=== PATIENT | female | born 1965 | race Caucasian/White ===

== ENCOUNTER 2017-01-05 13:07 | Emergency (ER) | payer OTHER ==
[~2017-01-05] VITALS: Ht 165.1 cm; Wt 67.5 kg
[~2017-01-05 13:07] MED LIST: BUPR-79 PO; KETO0.5S33 OPR; PRED1SUS3 OPR; PRLSR20 PO
[2017-01-05 13:08] VITALS: TEMP 37; Ht 165.1 cm; Wt 67.5 kg
[2017-01-05] MEDS ORDERED: KETOROLAC TROMETHAMINE 60 MG/2 ML VIAL IM STA (13:30)
[2017-01-05] MEDS ORDERED: CYCL5TAB PO (13:35)
--- NOTE | 2017-01-05 13:39 | EMERGENCY ROOM VISIT NOTE ---
ED Visit Note First contact with patient: 13:15 CHIEF COMPLAINT: Shoulder pain HISTORY OF PRESENT ILLNESS: This 51-year-old female patient presents to the emergency department, ambulatory, complaining of pain in the neck right shoulder. The patient states the pain began approximately 1 week ago. She states it is been slowly progressing and worsening over the past week. The patient states today, the pain became so bad that she was almost brought to her knees. 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 The patient states this is no different than the past 3 years. The patient has been taking 600 mg Advil every 4-5 hours with only minimal relief. The patient states she is more comfortable with her arm in a flexed position, and the pain worsens when leaning backwards, landing her arm dangle, or moving her head. The patient rates the pain as achy and pulsating at rest, and like a hot knife going through her joint at its worst and rates the pain 4/10 at rest, and 9/10 at its worst. The patient does not have a history of previous neck problems. The patient does have pain radiating towards the right shoulder. She states the pain begins in her anterior shoulder, radiates toward the back of her head/neck , and down towards her scapula. The patient denies numbness and tingling. The patient denies chest pain or shortness of breath. There was no head or shoulder injury and no loss of consciousness. The patient denies headache, blurred vision, abdominal pain, nausea, or vomiting. The patient denies change in personality. REVIEW OF SYSTEMS: A 10 system review of systems was completed with positives and pertinent negatives listed in the HPI. ALLERGIES: Erythromycin MEDICATIONS: Zoloft, Zantac PMH: GERD, Depression SOCIAL HISTORY: The patient lives locally with family. She denies drug, alcohol , tobacco use. PHYSICAL EXAM: VITALS: Vitals are noted on the nurse's note and reviewed by myself. Vital signs stable. GENERAL: This is a 51-year-old female, in no acute distress, nondiaphoretic, well-developed well-nourished. SKIN: Capillary reflex less than 2 seconds. HEENT: Normocephalic. PERRLA. EOMI. Nares patent. Mucous membranes moist. Neck is supple without nuchal rigidity. Cervical spine is not tender to palpation. The patient does have tenderness of the paraspinal muscles on the right. There is no lymphadenopathy. MUSCULOSKELETAL: The patient has full range of motion of the bilateral arms, however range of motion of the right shoulder is mildly limited due to pain. Strength 5/5 of the bilateral upper extremities. The patient has tenderness with lateral flexion of the neck. Muscle spasms noted on palpation of the trapezius muscle on the right. NEURO: Patient was alert and oriented to person place and time. Normal sensation to light and sharp touch. No focal neurologic deficits. EMERGENCY DEPARTMENT COURSE: I examined the patient. Assessment the patient options including performing an x-ray of the shoulder. Based on my examination , I am noting muscle spasms, and suspect this is the cause of the patient's pain. The patient and her visitor at bedside decided against performing an x- ray. I did recommend prednisone and muscle relaxers for the muscle spasms. The patient declines prednisone, as it makes her angry. I encouraged her to use another form of NSAIDs, and did offer naproxen or something different. The patient states she was unable to tolerate naproxen and it made her sick. I discussed with the patient the importance of taking scheduled ibuprofen in lieu of other NSAIDs, and using muscle relaxers as needed. The patient is to use heat for relief of the discomfort. Discharge instructions were reviewed. The patient started home in good condition. DIFFERENTIAL DIAGNOSIS: Muscle spasms, fracture, contusion, sprain, strain, rotator cuff tear, malignancy, and others DIAGNOSIS: Muscle spasms, shoulder pain DISCHARGE INSTRUCTIONS & TREATMENT: ORTHOPEDIC INSTRUCTIONS: Ibuprofen(Motrin, Advil) may be used for fever or pain. Use 600mg every six hours as needed. Take this medication regularly for the next week. Take with food. Avoid using more than 2400mg in a 24 hour period. Do not use 2400mg per day for more than three consecutive days without physician direction. Prolonged inappropriate use can lead to stomach upset or ulcers. (AND/OR) Acetaminophen(Tylenol) may be used for fever or pain. Use 1000mg every six hours as needed. Avoid using more than 3000mg in a 24 hour period. You have been prescribed Flexeril (cyclobenzaprine) 1-2 tabs orally, three times per day. Do NOT exceed 30 mg (6 tabs) per day. Take your first dose at bedtime as it can make you drowsy. Always take all medications as prescribed. Ice compresses for 20 minutes at a time four times daily for 2-3 days. Use the sling as instructed. Remove your arm from the sling 4-6 times a day and move all the joints around to keep them loose. Rest and elevate your injury. Return to the ER immediately for any numbness, tingling, severe pain, extreme swelling in the extremity or as needed. Call [facility], [phone], if no improvement in 1-2 weeks to arrange follow up for your injury. Follow-up with your primary care physician in 2 to 3 days for a recheck of your current condition. Current/Historical Medications Scheduled Bupropion (Wellbutrin Sr), 150 MG PO QAM Ketorolac Tromethamine (Ophth) (Acular Oph), 1 DROPS OPR DAILY Prednisolone Acetate (Ophth) (Pred Forte 1% Oph), 1 DROPS OPR TID Scheduled PRN Cyclobenzaprine Hcl (Flexeril), 1-2 TAB PO TID PRN for Muscle Spasms Omeprazole (Prilosec), 20 MG PO DAILY PRN for Indigestion Allergies Coded Allergies: Erythromycin (Unverified Allergy, Mild, N/V, 04/08/16) Vital Signs Date Time Temp Pulse Resp B/P (MAP) Pulse Ox O2 Delivery O2 Flow Rate FiO2 01/05/17 13:40 64 18 150/78 96 Room Air 01/05/17 13:08 37.0 93 16 165/106 95 Room Air Medications Administered Medications (Trade) Dose Ordered Sig/Jyoti Route Start Time Stop Time Status Last Admin Dose Admin Ketorolac Tromethamine (Toradol Inj) 60 mg NOW STAT IM 01/05/17 13:30 01/05/17 13:31 DC 01/05/17 13:37 60 MG Departure Information Impression Primary Impression: Muscle spasms of neck Additional Impression: Right shoulder strain Dispostion Home / Self-Care Condition GOOD Prescriptions Cyclobenzaprine Hcl (FLEXERIL) 5 Mg Tab 1-2 TAB PO TID Y for Muscle Spasms, #15 TAB PRN Prov: Yolette Vargas PA-C 01/05/17 Referrals Clarice Tejada D.O. (PCP) Patient Instructions ED Spasm Muscle, My [facility] Additional Instructions ORTHOPEDIC INSTRUCTIONS: Ibuprofen(Motrin, Advil) may be used for fever or pain. Use 600mg every six hours as needed. Take this medication regularly for the next week. Take with food. Avoid using more than 2400mg in a 24 hour period. Do not use 2400mg per day for more than three consecutive days without physician direction. Prolonged inappropriate use can lead to stomach upset or ulcers. (AND/OR) Acetaminophen(Tylenol) may be used for fever or pain. Use 1000mg every six hours as needed. Avoid using more than 3000mg in a 24 hour period. You have been prescribed Flexeril (cyclobenzaprine) 1-2 tabs orally, three times per day. Do NOT exceed 30 mg (6 tabs) per day. Take your first dose at bedtime as it can make you drowsy. Always take all medications as prescribed. Ice compresses for 20 minutes at a time four times daily for 2-3 days. Use the sling as instructed. Remove your arm from the sling 4-6 times a day and move all the joints around to keep them loose. Rest and elevate your injury. Return to the ER immediately for any numbness, tingling, severe pain, extreme swelling in the extremity or as needed. Call [facility], [phone], if no improvement in 1-2 weeks to arrange follow up for your injury. Follow-up with your primary care physician in 2 to 3 days for a recheck of your current condition. Problem Qualifiers Additional Impression: Right shoulder strain Encounter type: initial encounter Qualified Codes: S46.911A - Strain of unspecified muscle, fascia and tendon at shoulder and upper arm level, right arm , initial encounter
[2017-01-05 13:40] VITALS: BP 150/78; PULSE 64; O2SAT 96
[2017-01-05] MEDS ORDERED: IBUP-1050 PO (13:42)
[2017-01-05] MEDS ORDERED: SERT50TA PO (13:42)
[2017-01-05] MEDS ORDERED: RANI150T3 PO (13:42)
== END 2017-01-05 13:49 | disposition home or self-care (01) ==
LOC: C.EDB 13:08 → C.EDD 13:49
DX: M62.838 Other muscle spasm (principal); S46.911A Strain of unspecified muscle, fascia and tendon at shoulder and upper arm level, right arm, initial encounter; X58.XXXA Exposure to other specified factors, initial encounter; K21.9 Gastro-esophageal reflux disease without esophagitis; F32.9 Major depressive disorder, single episode, unspecified

== ENCOUNTER 2025-04-08 21:45 | Observation (INO) ==
--- NOTE | 2025-04-08 22:11 | Emergency Department Note ---
Impression & Plan Abdominal pain, Mass of cecum ED Provider Note ED Provider Note NAME: JLUIS PRADO AGE:59 SEX: Female : 1965 ARRIVES VIA: Private vehicle INFORMANT: Patient ED PROVIDER(s): Rose Baires DO CHIEF COMPLAINT: Abdominal pain HPI: This is a 59-year-old female who presents to the emergency department due to concern for central lower abdominal pain which began this afternoon around 3 PM. Patient states she was at work at the moment and felt well earlier in the day. No recent changes in diet or medications. Patient states she does have a history of peptic ulcer disease but takes pantoprazole daily. She states pain has been constant, and seem to radiate from her central lower abdomen into her left lower quadrant and then began to move superiorly along the left flank. She states no pain into her back. No recent change in urine or urinary habits. Patient states she did have more bowel movements today than normal however denies any melena, hematochezia, or overt diarrhea. No recent travel or other known sick contacts. Patient has never had endoscopy or colonoscopy. No prior abdominal surgeries. PAST MEDICAL HISTORY:See Below PAST SURGICAL HISTORY:See Below FAMILY HISTORY:See Below SOCIAL HISTORY:See Below HOME MEDICATIONS:See Below ALLERGIES:See Below VITALS:See Below PHYSICAL EXAMINATION: GENERAL: alert, uncomfortable appearing, well nourished, no distress, non-toxic EYE EXAM: normal conjunctiva, PERRL and EOM's grossly intact OROPHARYNX: no exudate, no erythema, lips, buccal mucosa, and tongue normal and mucous membranes are moist NECK: supple, no nuchal rigidity, no adenopathy, non-tender LUNGS: Clear to auscultation. Normal chest wall mechanics, no w/r/r HEART: no murmurs, S1 normal and S2 normal ABDOMEN: abdomen soft, pain with palpation of the central lower abdomen, normo- active bowel sounds, no masses, no rebound or guarding. Dull to percussion. SKIN: no rashes, petechiae, orbruising UPPER EXTREMITIES: upper extremities are grossly normal. FROM, nml pulses b/l. LOWER EXTREMITIES: No pitting edema. FROM, nml pulses b/l. NEURO EXAM: Normal sensorium, cranial nerves II-XII grossly intact, normal speech, no facial droop,nogross weakness of arms, no gross weakness of legs. Gross sensation intact. No ataxia. Vital Signs: reviewed and remarkable Differential Diagnosis: Colitis, diverticulitis, UTI, ureterolithiasis, bowel obstruction, viral syndrome, pyelonephritis, perforation, GI bleed, mesenteric ischemia, as well as others were considered MEDICAL DECISION MAKING: This is a 59-year-old female who presents to the emergency department due to concern for abrupt onset central and left-sided abdominal pain today. Patient afebrile and hemodynamically stable on arrival. Labs drawn and sent, IV established, EKG performed at bedside and interpreted by me and she was monitored on telemetry. She was started on IV fluids and given IV Tylenol and IV morphine for pain. She was sent for CT of the abdomen pelvis. Labs reassuring. CT revealed a mass in the area of the cecum as well as a dilated appendix. No other acute inflammatory changes noted at the appendix. Patient did have improvement of her pain with morphine however did require subsequent doses. Urine collected and sent for analysis additionally. Case discussed with general surgery on-call who recommended admission for GI consult and likely colonoscopy prior to any surgical intervention. Patient was made aware of all results at bedside and given a copy of her CT report. She verbalized understanding of need for further inpatient evaluation and treatment. Case discussed with the hospitalist team additionally. Consultation(s): 0235: Discussed with Med Santana PA-C with gen surg. 0255: Discussed with Dr. Giang, [place] hospitalist team, for additional evaluation and mgmt. ER Treatment Provided: See below Diagnostics Interpreted By Me: -ECG: Normal sinus at 66, normal axis, normal intervals, no acute ST/T wave changes -Cardiac Monitoring: An order was placed for continuous cardiac monitoring. The monitor shows a rate of 60 with normal sinus rhythm. -Laboratory studies: As stated above and show below. -Imaging studies: ct a/p - no perf, no sbo Triage Nursing Note Reviewed Prior/Outside Records Reviewed Past Med/Surg History Problem List (Updated 04/09/25 @ 03:38 by Rose Baires DO) Mass of cecum (Acute) Cecum mass Abdominal pain (Acute) Atherogenic dyslipidemia Abdominal bruit Screening for hypercholesterolemia Exertional dyspnea Sleep disturbances Obstructive sleep apnea syndrome RLS (restless legs syndrome) Hot flashes Routine gynecological examination GERD (gastroesophageal reflux disease) (Chronic) Anxiety (Chronic) Hypertension (Chronic) Depression (Chronic) Medical History Electronic cigarette use Pericardial effusion JUST HAS MORE FLUID AROUND HEART THAN MOST PEOPLE PER PATIENT> REASON FOR LISINOPRIL> DR. MANUEL FOLLOWS > DX 2 YRS AGO Surgical History Hx of bilateral cataract extraction H/O tooth extraction Family History Mother Congestive heart failure Lung cancer Father Congestive heart failure Diabetes Denies family history of Ovarian cancer Prostate cancer Myocardial infarction Breast cancer Colorectal cancer Social History Smoking Status: Current every day smoker Tobacco Type: E-cigarettes / Vaping Age Started Using Tobacco: 14; Age Quit Using Tobacco: 47; packs per day: 1; Cigarettes Per Day: Njoy 1.5 pods a week; Second Hand Exposure: No; Do You Dip or Chew Tobacco: No; Hx Alcohol Use: Yes Alcohol type: beer Alcohol Intake Frequency: 2-4 x/Month Hx Substance Use: No Preferred Language: Lithuanian Communication Ability: Effective Visual Impairment: No Limitations Hearing Ability: Normal Trestle Builder Required: No Beliefs That Will Affect Care: None marital status: / Current Living Situation: Family Current Living Situation Comment: lives with daughter and grandchildren current occupational status: employed 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 How many Children do You have: 2 Feels Safe at Home: Yes Childhood Exposure to Second-Hand Smoke: No Diet: regular caffeine: Yes Dental Care, Regularly: Yes Physical Activity Frequency: Daily Seatbelt Use: always Sunscreen Use: No Assistive Devices: Denture - Upper and Denture - Lower Allergies Allergies Allergy/AdvReac Type Severity Reaction Status Date / Time strawberry Allergy Intermediate Hives Unverified 03/31/25 09:37 erythromycin base AdvReac Mild N/V Verified 03/31/25 09:37 Home Meds Previous Rx's Medication Instructions Recorded pantoprazole 40 mg tablet,delayed 40 mg PO DAILY #30 tabs 03/29/24 release (Protonix) atorvastatin 10 mg tablet 10 mg PO QPM #90 tabs 07/16/24 aspirin 81 mg tablet,delayed 81 mg PO DAILY #90 tabs 08/04/24 release citalopram 10 mg tablet 10 mg PO PM #90 tabs 10/26/24 lisinopril 30 mg tablet 30 mg PO QAM #90 tabs 03/31/25 Results & Data (ED) Vital Signs Vital Signs - 24 hr 04/08/25 21:47 04/08/25 22:07 04/08/25 22:33 Temperature 36.7 C Temperature Source Temporal Artery Scan Pulse Rate 86 69 Pulse Rate [Finger] 88 Pulse Rhythm Regular Pulse Strength Normal Respiratory Rate 17 18 Respiratory Effort / Characteristics Non-Labored Spontaneous Respiratory Depth Normal Respiratory Pattern Regular Blood Pressure 166/102 H Blood Pressure [Right Arm] 168/83 H Blood Pressure Mean 123 Blood Pressure Mean [Right Arm] 111 Blood Pressure Position Sitting Pulse Oximetry 97 96 Oxygen Delivery Method Room Air Room Air Sepsis Recent Fever Within 48 Hours No Sepsis New/Unexplained Change in Mental Status N/A Sepsis Action Taken by Nursing No Action Required 04/08/25 23:40 04/09/25 01:00 04/09/25 02:06 Temperature Temperature Source Pulse Rate 65 Pulse Rate [Finger] 67 63 Pulse Rhythm Pulse Strength Respiratory Rate 18 18 Respiratory Effort / Characteristics Non-Labored Spontaneous Non-Labored Spontaneous Respiratory Depth Normal Normal Respiratory Pattern Regular Regular Blood Pressure Blood Pressure [Right Arm] 138/79 145/79 H Blood Pressure Mean Blood Pressure Mean [Right Arm] 98 101 Blood Pressure Position Pulse Oximetry 94 96 Oxygen Delivery Method Room Air Room Air Sepsis Recent Fever Within 48 Hours Sepsis New/Unexplained Change in Mental Status Sepsis Action Taken by Nursing 04/09/25 03:00 04/09/25 04:00 Temperature Temperature Source Pulse Rate Pulse Rate [Finger] 57 L 66 Pulse Rhythm Pulse Strength Respiratory Rate 16 18 Respiratory Effort / Characteristics Non-Labored Spontaneous Non-Labored Spontaneous Respiratory Depth Normal Normal Respiratory Pattern Regular Regular Blood Pressure Blood Pressure [Right Arm] 144/81 H 150/76 H Blood Pressure Mean Blood Pressure Mean [Right Arm] 102 100 Blood Pressure Position Pulse Oximetry 94 95 Oxygen Delivery Method Room Air Room Air Sepsis Recent Fever Within 48 Hours Sepsis New/Unexplained Change in Mental Status Sepsis Action Taken by Nursing Laboratory Data 04/08/25 22:02 04/08/25 22:02 Lab Results 04/08/25 04/08/25 Range/Units 21:55 22:02 WBC 10.32 (4.8-10.8) K/ul RBC 4.61 (4.20-5.40) M/uL Hgb 13.5 (12.0-16.0) g/dL Hct 39.4 (37.0-47.0) % MCV 85.5 (80.0-100.0) fL MCH 29.3 (25.0-34.0) pg MCHC 34.3 (32.0-36.0) g/dL RDW Std Deviation 38.6 (36.4-46.3) fL RDW Coeff of Teja 12.5 (11.5-14.5) % Plt Count 278 (130-400) K/uL MPV 9.3 L (9.4-12.4) fL Immature Gran % (Auto) 0.4 % Neut % (Auto) 78.3 % Lymph % (Auto) 11.7 % [place] % (Auto) 7.6 % Eos % (Auto) 1.6 % Baso % (Auto) 0.4 % Neut # (Auto) 8.09 H (1.40-6.50) K/uL Lymph # (Auto) 1.21 (1.20-3.40) K/uL [place] # (Auto) 0.78 H (0.11-0.59) K/uL Eos # (Auto) 0.16 (0.00-0.50) K/uL Baso # (Auto) 0.04 (0.00-0.20) K/uL Immature Gran # (Auto) 0.04 (0.01-0.20) K/uL PT 10.5 (9.0-12.0) Seconds INR 1.0 (0.9-1.1) Sodium 137 (136-145) mmol/L Potassium 4.1 (3.5-5.1) mmol/L Chloride 104 (98-107) mmol/L Carbon Dioxide 25 (21-32) mmol/L Anion Gap 8 (3-11) BUN 19 (6-23) mg/dl Creatinine 0.78 (0.6-1.2) mg/dl Est Cr Clr Drug Dosing 79.9 ml/min eGFR 86.90 BUN/Creatinine Ratio 24.4 H (10-20) Glucose 119 H (70-99(Fasting)) mg/dl Calcium 9.7 (8.6-10.3) mg/dl Total Bilirubin 0.4 (0.2-1.0) mg/dl AST 15 (13-39) U/L ALT 20 (7-52) U/L Alkaline Phosphatase 95 (34-104) U/L Total Protein 7.4 (6.0-8.3) gm/dl Albumin 4.2 (3.4-5.0) gm/dl Globulin 3.2 (2.5-4.0) gm/dl Albumin/Globulin Ratio 1.3 (0.9-2) Lipase 5 L (11-82) U/L Urine Color Yellow Urine Appearance Clear (Clear) Urine pH 5.5 (4.5-7.5) Ur Specific [place] 1.017 (1.000-1.030) Urine Protein Negative (Negative) Urine Glucose (UA) Negative (Negative) Urine Ketones Negative (Negative) Urine Blood 2+ H (Negative) Urine Nitrite Negative (Negative) Urine Bilirubin Negative (Negative) Urine Urobilinogen Negative (Negative) Ur Leukocyte Esterase Negative (Negative) Urine WBC (Auto) 0-5 (0-5) /hpf Urine RBC (Auto) 0-2 (0-2) /hpf U Hyaline Cast (Auto) 0-2 (0-2) /lpf U Epithel Cells (Auto) 3-5 H (0-2) /hpf Urine Bacteria (Auto) None Seen (None Seen) Urine Comment Administered Medications Hydromorphone HCl (Hydromorphone Inj 0.5 Mg/0.5 Ml Syr) 0.25 mg IV Q3H PRN PRN Reason: Moderate Pain (Scale 4, 5, 6) Stop: 04/23/25 03:39 Last Admin: 04/09/25 04:01 Dose: 0.25 mg Documented By: AURE Piperacillin Sod/Tazobactam Sod (Zosyn) 4.5 gm in 100 mls @ 25 mls/hr IV NOW ONE; Protocol Stop: 04/09/25 07:59 Last Admin: 04/09/25 04:01 Dose: 25 mls/hr Documented By: AURE Discontinued Medications Sodium Chloride (Nss) 1,000 mls @ 999 mls/hr IV .Q1H1M STA Stop: 04/08/25 23:08 Last Infusion: 04/08/25 23:38 Dose: Infused Documented By: Admin: 04/08/25 22:23 Dose: 999 mls/hr Documented By: JOY Acetaminophen (Ofirmev) 1,000 mg in 100 mls @ 400 mls/hr IV NOW STA Stop: 04/08/25 22:22 Last Infusion: 04/08/25 22:48 Dose: Infused Documented By: Admin: 04/08/25 22:24 Dose: 400 mls/hr Documented By: JOY Famotidine (Pepcid 20mg Iv Push) 20 mg in 5 mls @ 2.5 mls/min IV NOW STA Stop: 04/08/25 22:09 Last Admin: 04/08/25 22:24 Dose: 2.5 mls/min Documented By: JOY Pantoprazole Sodium (Protonix) 40 mg in 10 mls @ 5 mls/min IV NOW ONE Stop: 04/08/25 22:09 Last Admin: 04/08/25 22:25 Dose: 5 mls/min Documented By: JOY Ioversol (Optiray 320 100ml) 92 ml IV ONCE ONE Stop: 04/08/25 22:52 Last Admin: 04/08/25 22:52 Dose: 92 ml Documented By: HERMILA Morphine Sulfate (Morphine Sulfate 4 Mg/Ml 1 Ml Carp\Vial) 4 mg IV NOW STA Stop: 04/08/25 22:09 Last Admin: 04/08/25 22:25 Dose: 4 mg Documented By: JOY Morphine Sulfate (Morphine Sulfate 4 Mg/Ml 1 Ml Carp\Vial) 4 mg IV NOW STA Stop: 04/09/25 01:08 Last Admin: 04/09/25 01:10 Dose: 4 mg Documented By: VÍCTOR Ondansetron HCl (Ondansetron Inj 2 Mg/Ml 2 Ml Vial) 4 mg IV NOW STA Stop: 04/08/25 22:09 Last Admin: 04/08/25 22:23 Dose: 4 mg Documented By: JOY Imaging Data Radiologist's Impression: Abdomen/Pelvis CT 04/08/25 22:33 Exam(s): CT ABDOMEN + PELVIS With Contrast IV Amt: 92 cc opti 320 EXAM: CT Abdomen and Pelvis With Intravenous Contrast CLINICAL HISTORY: Left lower quadrant Pain. TECHNIQUE: Axial computed tomography images of the abdomen and pelvis with intravenous contrast. CTDI is 22.02 mGy and DLP is 1037.75 mGy-cm. Automated exposure control was utilized for the study. A dose lowering technique was utilized adhering to the principles of ALARA. CONTRAST: Patient received 92 cc opti 320 of IV contrast COMPARISON: No relevant prior studies available. FINDINGS: Lung bases: Unremarkable. No mass. No consolidation. Pleural space: Trace bilateral pleural effusions. ABDOMEN: Liver: Unremarkable. No mass. Gallbladder and bile ducts: Unremarkable. No calcified stones. No ductal dilation. Pancreas: Unremarkable. No mass. No ductal dilation. Spleen: Unremarkable. No splenomegaly. Adrenals: Unremarkable. No mass. Kidneys and ureters: Unremarkable. No solid mass. No hydronephrosis. Stomach and bowel: Unremarkable. No obstruction. No mucosal thickening. PELVIS: Appendix: There is a 5.2 cm mass of the cecum with a distended fluid- filled appendix measuring 1.2 cm. Bladder: Unremarkable. No mass. Reproductive: The uterus and adnexa are within normal limits. ABDOMEN and PELVIS: Intraperitoneal space: Trace free fluid in the abdomen and pelvis is nonspecific. No free air. Bones/joints: No acute fracture. No dislocation. Soft tissues: A small fat containing umbilical hernia is present. Vasculature: Moderate atherosclerosis. No aneurysm. Lymph nodes: Unremarkable. No enlarged lymph nodes. IMPRESSION: 1. There is a 5.2 cm mass of the cecum with a distended fluid-filled appendix measuring 1.2 cm. This is highly concerning for malignancy. 2. Trace free fluid in the abdomen and pelvis is nonspecific. 3. Trace bilateral pleural effusions. Electronically signed by: Zoya Mendoza MD 04/09/25 02:15 AM Discharge Plan Visit Data Chief Complaint: Abdominal Pain Stated Complaint: ABD PAIN, NAUSEA ED Provider: Rose Baires Discharge Problem: Abdominal pain, Mass of cecum Patient Disposition: Admitted As Inpatient Condition: Fair Prescriptions Prescriptions: No Action atorvastatin 10 mg tablet 10 mg PO QPM Qty: 90 3RF aspirin 81 mg tablet,delayed release (DR/EC) 81 mg PO DAILY Qty: 90 3RF citalopram 10 mg tablet 10 mg PO PM Qty: 90 3RF lisinopril 30 mg tablet 30 mg PO QAM Qty: 90 3RF pantoprazole [Protonix] 40 mg tablet,delayed release (DR/EC) 40 mg PO DAILY Qty: 30 2RF Referrals Referrals: Chacorta Manuel DO [Primary Care Provider] -
[2025-04-08 22:20] LABS: Hematocrit (blood only) 39.4 % (37.0-47.0); Hemoglobin 13.5 g/dL (12.0-16.0); Immature Granulocytes # (auto) 0.04 K/uL (0.01-0.20); Immature Granulocytes % (auto) 0.4 %; Mean Corpuscular Hemoglobin 29.3 pg (25.0-34.0); Mean Corpuscular Volume 85.5 fL (80.0-100.0); Platelet Count 278 K/uL (130-400); RDW Standard Deviation 38.6 fL (36.4-46.3); Red Blood Count 4.61 M/uL (4.20-5.40); White Blood Count 10.32 K/ul (4.8-10.8)
[2025-04-08] MEDS: SODIUM CHLORIDE 0.9% 1,000 ML IV STA (22:23)
[2025-04-08] MEDS: ONDANSETRON INJ 2 MG/ML 2 ML VIAL IV STA (22:23)
[2025-04-08] MEDS: ACETAMINOPHEN 1,000 MG/100 ML VIAL IV STA (22:24)
[2025-04-08] MEDS: FAMOTIDINE 20MG IV PUSH 20 MG/5 ML SYR IV STA (22:24)
[2025-04-08] MEDS: MoRPHine SULFATE 4 MG/ML 1 ML CARP\\VIAL IV STA (22:25)
[2025-04-08] MEDS: PANTOprazole 40 MG/10 ML SYR IV ONE (22:25)
[2025-04-08 22:37] LABS: Alanine Aminotransferase 20.0 U/L (7-52); Albumin Globulin Ratio 1.3 (0.9-2); Albumin Level 4.2 gm/dl (3.4-5.0); Alkaline Phosphatase 95.0 U/L (34-104); Anion Gap 8.0 (3-11); Bilirubin,Total 0.4 mg/dl (0.2-1.0); Blood Urea Nitrogen 19.0 mg/dl (6-23); Calcium 9.7 mg/dl (8.6-10.3); Carbon Dioxide 25.0 mmol/L (21-32); Chloride 104.0 mmol/L (98-107); Creatinine Clr Calc Pharmacy 79.9 ml/min; Globulin 3.2 gm/dl (2.5-4.0); Glucose 119.0 mg/dl (70-99(Fasting)); Lipase 5.0 U/L (11-82); Potassium 4.1 mmol/L (3.5-5.1); Sodium 137.0 mmol/L (136-145); Total Protein 7.4 gm/dl (6.0-8.3)
[2025-04-08 22:42] LABS: Appearance Urine Clear (Clear); Bacteria Urine Automated None Seen (None Seen); Cast Urine Automated 0-2 /lpf (0-2); Glucose Urine UA Negative (Negative); RBC Urine Automated 0-2 /hpf (0-2); WBC Urine Automated 0-5 /hpf (0-5)
[2025-04-08 22:48] LABS: INR 1.0 (0.9-1.1); Prothrombin Time 10.5 Seconds (9.0-12.0)
[2025-04-08] MEDS: OPTIRAY 320 100ml IV ONE (22:52)
[2025-04-09] MEDS: MoRPHine SULFATE 4 MG/ML 1 ML CARP\\VIAL IV STA (01:10)
--- NOTE | 2025-04-09 02:16 | CT Scan Report ---
Exam(s): CT ABDOMEN + PELVIS With Contrast IV Amt: 92 cc opti 320 EXAM: CT Abdomen and Pelvis With Intravenous Contrast CLINICAL HISTORY: Left lower quadrant Pain. TECHNIQUE: Axial computed tomography images of the abdomen and pelvis with intravenous contrast. CTDI is 22.02 mGy and DLP is 1037.75 mGy-cm. Automated exposure control was utilized for the study. A dose lowering technique was utilized adhering to the principles of ALARA. CONTRAST: Patient received 92 cc opti 320 of IV contrast COMPARISON: No relevant prior studies available. FINDINGS: Lung bases: Unremarkable. No mass. No consolidation. Pleural space: Trace bilateral pleural effusions. ABDOMEN: Liver: Unremarkable. No mass. Gallbladder and bile ducts: Unremarkable. No calcified stones. No ductal dilation. Pancreas: Unremarkable. No mass. No ductal dilation. Spleen: Unremarkable. No splenomegaly. Adrenals: Unremarkable. No mass. Kidneys and ureters: Unremarkable. No solid mass. No hydronephrosis. Stomach and bowel: Unremarkable. No obstruction. No mucosal thickening. PELVIS: Appendix: There is a 5.2 cm mass of the cecum with a distended fluid- filled appendix measuring 1.2 cm. Bladder: Unremarkable. No mass. Reproductive: The uterus and adnexa are within normal limits. ABDOMEN and PELVIS: Intraperitoneal space: Trace free fluid in the abdomen and pelvis is nonspecific. No free air. Bones/joints: No acute fracture. No dislocation. Soft tissues: A small fat containing umbilical hernia is present. Vasculature: Moderate atherosclerosis. No aneurysm. Lymph nodes: Unremarkable. No enlarged lymph nodes. IMPRESSION: 1. There is a 5.2 cm mass of the cecum with a distended fluid-filled appendix measuring 1.2 cm. This is highly concerning for malignancy. 2. Trace free fluid in the abdomen and pelvis is nonspecific. 3. Trace bilateral pleural effusions. Electronically signed by: Zoya Mendoza MD 04/09/25 02:15 AM
--- NOTE | 2025-04-09 03:05 | Surgery Consultation ---
Date of Consultation April 09, 2025 Assessment & Plan (1) Cecum mass: I discussed with the treating retroposition the patient is going to be admitted on the hospitalist service. From a surgical perspective we recommend the following: Provide analgesics Provide antiemetics Keep patient n.p.o. for the present time Hydrate with IV fluids Initiate antibiotics As noted on patient's CT scan she appears to have a cecal mass which is concerning for malignancy. As the patient has never had a colonoscopy would be preferable to have her undergo this procedure so her entire colon can be examined and the cecal mass can be potentially biopsied which will help guide further therapythis will help determine if patient will require immediate surgical resection based on pathology results Is to be preferable to have the patient have a colonoscopy would recommend obtaining a GI consultation We will await input from gastroenterology with further recommendations to follow based on her clinical course as it unfolds as well as recommendations from gastroenterology Supervising Physician Co-Signing Physician Notes This case was discussed with the surgical PA. I have seen and examined this patient this am. She still has some mild abdominal pain and this is controlled with pain medication No acute surgical intervention Continue with IV abx GI on board and has initiated a diet with plans for bowel prep with expected c olonoscopy on Friday Surgery will follow History of Present Illness Reason for Consultation: Cecal mass History of Present Illness This is a 59-year-old female who presented to the emergency department secondary to lower abdominal pain that began the morning of 04/08/2025. She notes that the pain seemed to be more in the left lower quadrant when initially began but is now localized to the right lower quadrant. She has had nausea without vomiting but denies any fevers, shakes, or chills. She does not report any mitigating or modifying factors of her pain. She has never had abdominal surgery in the past. She has never had a colonoscopy. Since arrival to hospital patient has had labs and imaging which) reviewed. A CT scan of the abdomen pelvis showed the patient had concern for a 5.2 cm mass involving the cecum as well as a distended and fluid-filled appendix measuring 1.2 cmthe interpreting radiologist felt that this was concerning for malignancy. CBC revealed white blood cell count, hemoglobin, hematocrit, and platelet count were normal. Coagulation studies were normal. Chemistry profile showed sodium and potassium as well as the BUN and creatinine were normal. There is no elevation of LFTs or lipase and urinalysis was not indicative of infection. At the time of my interview she was resting comfortably in bed and she was in no distress Allergies Allergy/AdvReac Type Severity Reaction Status Date / Time strawberry Allergy Intermediate Hives Unverified 03/31/25 09:37 erythromycin base AdvReac Mild N/V Verified 03/31/25 09:37 Home Medications Medication Instructions Recorded Confirmed Type pantoprazole 40 mg tablet,delayed 40 mg PO DAILY #30 tabs 03/29/24 04/09/25 Rx release (Protonix) atorvastatin 10 mg tablet 10 mg PO QPM #90 tabs 07/16/24 04/09/25 Rx aspirin 81 mg tablet,delayed 81 mg PO DAILY #90 tabs 08/04/24 04/09/25 Rx release citalopram 10 mg tablet 10 mg PO PM #90 tabs 10/26/24 04/09/25 Rx lisinopril 30 mg tablet 30 mg PO QAM #90 tabs 03/31/25 04/09/25 Rx Patient History Medical History Electronic cigarette use Pericardial effusion JUST HAS MORE FLUID AROUND HEART THAN MOST PEOPLE PER PATIENT> REASON FOR LISINOPRIL> DR. MANUEL FOLLOWS > DX 2 YRS AGO Surgical History Hx of bilateral cataract extraction H/O tooth extraction Family History Mother Congestive heart failure Lung cancer Father Congestive heart failure Diabetes Denies family history of Ovarian cancer Prostate cancer Myocardial infarction Breast cancer Colorectal cancer Social History Smoking Status: Current every day smoker Tobacco Type: Cigarettes Age Started Using Tobacco: 14; Age Quit Using Tobacco: 47; packs per day: 1; Cigarettes Per Day: Njoy 1.5 pods a week; Second Hand Exposure: No; Do You Dip or Chew Tobacco: No; Hx Alcohol Use: Yes Alcohol type: beer Alcohol Intake Frequency: 2-4 x/Month Hx Substance Use: No Preferred Language: Wallisian Communication Ability: Effective Visual Impairment: No Limitations Hearing Ability: Normal Seed Cutter Required: No Beliefs That Will Affect Care: None marital status: / Current Living Situation: Family Current Living Situation Comment: Daughter and 2 grandchildren current occupational status: employed 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 How many Children do You have: 2 Feels Safe at Home: Yes Childhood Exposure to Second-Hand Smoke: No Diet: regular caffeine: Yes Dental Care, Regularly: Yes Physical Activity Frequency: Daily Seatbelt Use: always Sunscreen Use: No Assistive Devices: CPAP, Denture - Upper, Denture - Lower and Glasses Review of Systems Review of Systems: All systems reviewed & are unremarkable except as noted in HPI & below Physical Exam Constitutional: WD/WN, vitals as above Eyes: no conjunctival abnormality ENMT: Ears: no hearing impairment and no external ear abnormality Mouth: no oropharynx abnormality Neck: trachea midline Respiratory: normal respiratory effort; no respiratory distress and no labored breathing Cardiovascular: Rate/Rhythm: regular rate and regular rhythm Gastrointestinal (Abdomen): Abdomen is soft without distention. There is no rigidity, rebound tenderness, guarding, or signs of peritonitis. The patient did have pain with palpation in the right lower quadrant. Musculoskeletal: No calf tenderness Skin: no rashes Neurologic: moves all extremities Psychiatric: A+Ox3, euthymic affect Results & Data Vital Signs (Past 12 Hours) Vital Signs Temp Pulse Pulse Resp BP BP Pulse Ox 04/09/25 02:06 65 04/09/25 01:00 63 18 145/79 H 96 04/08/25 23:40 67 18 138/79 94 04/08/25 22:33 88 18 168/83 H 96 04/08/25 22:07 69 04/08/25 21:47 36.7 C 86 17 166/102 H 97 O2 Del Method 04/09/25 02:06 04/09/25 01:00 Room Air 04/08/25 23:40 Room Air 04/08/25 22:33 Room Air 04/08/25 22:07 04/08/25 21:47 Room Air PG Care Time/CCT Total # of Minutes Spent Total Time Spent with Patient: Total time spent is greater than 50% in coordination of care (as documented) at patient's floor/unit and/or counseling patient: Coding Level of Care Code 21752 OFFICE CONSULT LVL 5/55M Diagnoses Cecum mass K63.89
[2025-04-09] MEDS ORDERED: MoRPHine SULFATE 4 MG/ML 1 ML CARP\\VIAL IV PRN (03:18)
[2025-04-09] MEDS ORDERED: NALOXONE HCL 0.4 MG/1 ML VIAL/CARP IV PRN (03:40)
--- NOTE | 2025-04-09 03:44 | History & Physical Report ---
Date of Service April 09, 2025 Assessment & Plan (1) Mass of cecum: (2) Appendix disease: (3) Abdominal pain: (4) Nausea without vomiting: Plan The patient is a 59-year-old female with past medical history significant for atherogenic dyslipidemia, abdominal bruit, CRYSTAL, RLS, GERD, anxiety, hypertension, and depression. She presents to the emergency department with complaint of severe left sided and left lower quadrant abdominal pain began around 2:00 in the afternoon, accompanied by nausea without vomiting. In the past she when she has had abdominal pain she has taken Protonix and has had relief, however, she did not have significant improvement with twice this time, and thus presented to the ED for assessment. Workup in the emergency department included a CT of abdomen and pelvis which showed a 5.2 cm cecum mass, a distended fluid-filled appendix, which was concerning for malignancy. From the ED she received the following: Normal saline 1 L bolus, morphine 4 mg IV, Zofran 4 mg IV, acetaminophen 1 g IV, famotidine 20 mg IV, Protonix 40 mg IV, and morphine 4 mg IV. [facility] 5.2 cm cecum mass/distended fluid-filled appendix- NPO Acetaminophen 1 g IV every 8 hours as needed for mild pain or fever Dilaudid 0.25 mg IV every 3 hours as needed for moderate pain Dilaudid 0.5 mg IV every 3 hours as needed for severe pain Narcan IV per protocol as needed Pantoprazole 40 mg IV every morning Zofran 4 mg IV every 6 hours as needed Zosyn 4.5 g IV every 8 hours LR at 100 mL/h Consult general surgery Hypertension- Holding lisinopril and aspirin Hydralazine 10 mg IV every 4 hours as needed for systolic blood pressure greater than 160 Peptic ulcer disease- Changing pantoprazole from oral to IV as noted above Hyperlipidemia- Hold atorvastatin until taking p.o. Anxiety/depression- Holding citalopram while n.p.o. Lorazepam 0.5 mg IV every 8 hours as needed History of Present Illness Primary Care Provider: Chacorta Manuel DO The patient is a 59-year-old female with past medical history significant for atherogenic dyslipidemia, abdominal bruit, CRYSTAL, RLS, GERD, anxiety, hyp ertension, and depression. She presents to the emergency department with complaint of severe left sided and left lower quadrant abdominal pain began around 2:00 in the afternoon, accompanied by nausea without vomiting. In the past she when she has had abdominal pain she has taken Protonix and has had relief, however, she did not have significant improvement with twice this time, and thus presented to the ED for assessment. Workup in the emergency department included a CT of abdomen and pelvis which showed a 5.2 cm cecum mass, a distended fluid-filled appendix, which was concerning for malignancy. From the ED she received the following: Normal saline 1 L bolus, morphine 4 mg IV, Zofran 4 mg IV, acetaminophen 1 g IV, famotidine 20 mg IV, Protonix 40 mg IV, and morphine 4 mg IV. She was then [facility]. Allergies Allergy/AdvReac Type Severity Reaction Status Date / Time strawberry Allergy Intermediate Hives Unverified 03/31/25 09:37 erythromycin base AdvReac Mild N/V Verified 03/31/25 09:37 Home Medications Medication Instructions Recorded Confirmed Type pantoprazole 40 mg tablet,delayed 40 mg PO DAILY #30 tabs 03/29/24 04/09/25 Rx release (Protonix) atorvastatin 10 mg tablet 10 mg PO QPM #90 tabs 07/16/24 04/09/25 Rx aspirin 81 mg tablet,delayed 81 mg PO DAILY #90 tabs 08/04/24 04/09/25 Rx release citalopram 10 mg tablet 10 mg PO PM #90 tabs 10/26/24 04/09/25 Rx lisinopril 30 mg tablet 30 mg PO QAM #90 tabs 03/31/25 04/09/25 Rx Past Med/Surg History Problem List (Updated 04/09/25 @ 04:33 by Ramon Giang MD) Appendix disease Nausea without vomiting Mass of cecum (Acute) Cecum mass Abdominal pain (Acute) Atherogenic dyslipidemia Abdominal bruit Screening for hypercholesterolemia Exertional dyspnea Sleep disturbances Obstructive sleep apnea syndrome RLS (restless legs syndrome) Hot flashes Routine gynecological examination GERD (gastroesophageal reflux disease) (Chronic) Anxiety (Chronic) Hypertension (Chronic) Depression (Chronic) Medical History Electronic cigarette use Pericardial effusion JUST HAS MORE FLUID AROUND HEART THAN MOST PEOPLE PER PATIENT> REASON FOR LISINOPRIL> DR. MANUEL FOLLOWS > DX 2 YRS AGO Surgical History Hx of bilateral cataract extraction H/O tooth extraction Family History Mother Congestive heart failure Lung cancer Father Congestive heart failure Diabetes Denies family history of Ovarian cancer Prostate cancer Myocardial infarction Breast cancer Colorectal cancer Social History Smoking Status: Current every day smoker Tobacco Type: E-cigarettes / Vaping Age Started Using Tobacco: 14; Age Quit Using Tobacco: 47; packs per day: 1; Cigarettes Per Day: Njoy 1.5 pods a week; Second Hand Exposure: No; Do You Dip or Chew Tobacco: No; Hx Alcohol Use: Yes Alcohol type: beer Alcohol Intake Frequency: 2-4 x/Month Hx Substance Use: No Preferred Language: Kazakh Communication Ability: Effective Visual Impairment: No Limitations Hearing Ability: Normal Detective Sergeant Required: No Beliefs That Will Affect Care: None marital status: / Current Living Situation: Family Current Living Situation Comment: lives with daughter and grandchildren current occupational status: employed 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 How many Children do You have: 2 Feels Safe at Home: Yes Childhood Exposure to Second-Hand Smoke: No Diet: regular caffeine: Yes Dental Care, Regularly: Yes Physical Activity Frequency: Daily Seatbelt Use: always Sunscreen Use: No Assistive Devices: Denture - Upper and Denture - Lower Review of Systems Review of Systems: The patient denies chest pain, palpitations, shortness of breath, dyspnea on exertion, cough, lower extremity swelling, sore throat, fevers, chills, sweats, vomiting, diarrhea , constipation, blood in urine or stool, dysuria, urinary frequency or urgency, lightheadedness, dizziness, headache, memory loss, loss of consciousness, rash, abnormal bruising or bleeding, imbalance, focal weakness, numbness or tingling in arms or legs, generalized arthralgias or myalgias, neck pain, or night sweats. The review of systems is otherwise negative other than for that already noted above, and at least 10 systems have been reviewed. Physical Exam Physical Exam: The patient is awake, alert and oriented 3, well developed and well nourished, normocephalic and atraumatic, lying in bed and in no acute distress. HEENT--PERRL, EOMI, mucous membranes and oropharynx dry. Neck--supple. No JVD. No bruits. Thyroid normal, trachea midline, no adenopathy. Heart--normal S1 and S2. No murmurs, rubs or gallops. Lungs--clear bilaterally, no respiratory distress, no accessory muscle use. Abdomen--normal bowel sounds and soft. Significant tenderness right lower quadrant with palpation. Nondistended, no hernias or masses, no organomegaly. Extremities--no cyanosis or clubbing. No edema. There are good distal pulses b/l. Dermatologic--normal skin turgor, normal color, no abnormal lymph nodes, no rash. Neurologic--cranial nerves II through XII grossly intact. Rheumatologic--normal range of motion. Psychiatric--normal affect. Results & Data Results & Data Vital Signs (Past 12 Hours) Vital Signs Temp Pulse Pulse Resp BP BP Pulse Ox 04/09/25 03:00 57 L 16 144/81 H 94 04/09/25 02:06 65 04/09/25 01:00 63 18 145/79 H 96 04/08/25 23:40 67 18 138/79 94 04/08/25 22:33 88 18 168/83 H 96 04/08/25 22:07 69 04/08/25 21:47 36.7 C 86 17 166/102 H 97 O2 Del Method 04/09/25 03:00 Room Air 04/09/25 02:06 04/09/25 01:00 Room Air 04/08/25 23:40 Room Air 04/08/25 22:33 Room Air 04/08/25 22:07 04/08/25 21:47 Room Air Laboratory Results Laboratory Results WBC 10.32 K/ul (4.8-10.8) 04/08/25 22:02 RBC 4.61 M/uL (4.20-5.40) 04/08/25 22:02 Hgb 13.5 g/dL (12.0-16.0) 04/08/25 22:02 Hct 39.4 % (37.0-47.0) 04/08/25 22:02 MCV 85.5 fL (80.0-100.0) 04/08/25 22:02 MCH 29.3 pg (25.0-34.0) 04/08/25 22: MCHC 34.3 g/dL (32.0-36.0) 04/08/25 22: RDW Std Deviation 38.6 fL (36.4-46.3) 04/08/25 22: RDW Coeff of Teja 12.5 % (11.5-14.5) 04/08/25 22: Plt Count 278 K/uL (130-400) 04/08/25 22: MPV 9.3 fL (9.4-12.4) L 04/08/25 22: Immature Gran % (Auto) 0.4 % 04/08/25 22: Neut % (Auto) 78.3 % 04/08/25 22: Lymph % (Auto) 11.7 % 04/08/25 22: Wood % (Auto) 7.6 % 04/08/25 22:02 Eos % (Auto) 1.6 % 04/08/25 22:02 Baso % (Auto) 0.4 % 04/08/25 22: Neut # (Auto) 8.09 K/uL (1.40-6.50) H 04/08/25 22: Lymph # (Auto) 1.21 K/uL (1.20-3.40) 04/08/25 22: Wood # (Auto) 0.78 K/uL (0.11-0.59) H 04/08/25 22:02 Eos # (Auto) 0.16 K/uL (0.00-0.50) 04/08/25 22:02 Baso # (Auto) 0.04 K/uL (0.00-0.20) 04/08/25 22: Immature Gran # (Auto) 0.04 K/uL (0.01-0.20) 04/08/25 22: PT 10.5 Seconds (9.0-12.0) 04/08/25 22: INR 1.0 (0.9-1.1) 04/08/25 22:02 Sodium 137 mmol/L (136-145) 04/08/25 22:02 Potassium 4.1 mmol/L (3.5-5.1) 04/08/25 22:02 Chloride 104 mmol/L (98-107) 04/08/25 22:02 Carbon Dioxide 25 mmol/L (21-32) 04/08/25 22:02 Anion Gap 8 (3-11) 04/08/25 22:02 BUN 19 mg/dl (6-23) 04/08/25 22:02 Creatinine 0.78 mg/dl (0.6-1.2) 04/08/25 22:02 Est Cr Clr Drug Dosing 79.9 ml/min 04/08/25 22:02 eGFR 86.90 04/08/25 22:02 BUN/Creatinine Ratio 24.4 (10-20) H 04/08/25 22:02 Glucose 119 mg/dl (70-99(Fasting)) H 04/08/25 22:02 Calcium 9.7 mg/dl (8.6-10.3) 04/08/25 22:02 Total Bilirubin 0.4 mg/dl (0.2-1.0) 04/08/25 22:02 AST 15 U/L (13-39) 04/08/25 22:02 ALT 20 U/L (7-52) 04/08/25 22:02 Alkaline Phosphatase 95 U/L (34-104) 04/08/25 22:02 Total Protein 7.4 gm/dl (6.0-8.3) 04/08/25 22:02 Albumin 4.2 gm/dl (3.4-5.0) 04/08/25 22:02 Globulin 3.2 gm/dl (2.5-4.0) 04/08/25 22:02 Albumin/Globulin Ratio 1.3 (0.9-2) 04/08/25 22:02 Lipase 5 U/L (11-82) L 04/08/25 22:02 Urine Color Yellow 04/08/25 21: Urine Appearance Clear (Clear) 04/08/25 21: Urine pH 5.5 (4.5-7.5) 04/08/25 21: Ur Specific Rowe 1.017 (1.000-1.030) 04/08/25 21:55 Urine Protein Negative (Negative) 04/08/25 21: Urine Glucose (UA) Negative (Negative) 04/08/25 21:55 Urine Ketones Negative (Negative) 04/08/25 21:55 Urine Blood 2+ (Negative) H 04/08/25 21:55 Urine Nitrite Negative (Negative) 04/08/25 21:55 Urine Bilirubin Negative (Negative) 04/08/25 21:55 Urine Urobilinogen Negative (Negative) 04/08/25 21:55 Ur Leukocyte Esterase Negative (Negative) 04/08/25 21:55 Urine WBC (Auto) 0-5 /hpf (0-5) 04/08/25 21:55 Urine RBC (Auto) 0-2 /hpf (0-2) 04/08/25 21:55 U Hyaline Cast (Auto) 0-2 /lpf (0-2) 04/08/25 21:55 U Epithel Cells (Auto) 3-5 /hpf (0-2) H 04/08/25 21:55 Urine Bacteria (Auto) None Seen (None Seen) 04/08/25 21:55 Urine Comment 04/08/25 21:55 Impressions Abdomen/Pelvis CT 04/08/25 22:33 Exam(s): CT ABDOMEN + PELVIS With Contrast IV Amt: 92 cc opti 320 EXAM: CT Abdomen and Pelvis With Intravenous Contrast CLINICAL HISTORY: Left lower quadrant Pain. TECHNIQUE: Axial computed tomography images of the abdomen and pelvis with intravenous contrast. CTDI is 22.02 mGy and DLP is 1037.75 mGy-cm. Automated exposure control was utilized for the study. A dose lowering technique was utilized adhering to the principles of ALARA. CONTRAST: Patient received 92 cc opti 320 of IV contrast COMPARISON: No relevant prior studies available. FINDINGS: Lung bases: Unremarkable. No mass. No consolidation. Pleural space: Trace bilateral pleural effusions. ABDOMEN: Liver: Unremarkable. No mass. Gallbladder and bile ducts: Unremarkable. No calcified stones. No ductal dilation. Pancreas: Unremarkable. No mass. No ductal dilation. Spleen: Unremarkable. No splenomegaly. Adrenals: Unremarkable. No mass. Kidneys and ureters: Unremarkable. No solid mass. No hydronephrosis. Stomach and bowel: Unremarkable. No obstruction. No mucosal thickening. PELVIS: Appendix: There is a 5.2 cm mass of the cecum with a distended fluid- filled appendix measuring 1.2 cm. Bladder: Unremarkable. No mass. Reproductive: The uterus and adnexa are within normal limits. ABDOMEN and PELVIS: Intraperitoneal space: Trace free fluid in the abdomen and pelvis is nonspecific. No free air. Bones/joints: No acute fracture. No dislocation. Soft tissues: A small fat containing umbilical hernia is present. Vasculature: Moderate atherosclerosis. No aneurysm. Lymph nodes: Unremarkable. No enlarged lymph nodes. IMPRESSION: 1. There is a 5.2 cm mass of the cecum with a distended fluid-filled appendix measuring 1.2 cm. This is highly concerning for malignancy. 2. Trace free fluid in the abdomen and pelvis is nonspecific. 3. Trace bilateral pleural effusions. Electronically signed by: Zoya Mendoza MD 04/09/25 02:15 AM Code Status & VTE Plan Code Status Full code VTE Prophylaxis Plan VTE Prophylaxis will be ordered: Yes PG Care Time/CCT Total # of Minutes Spent Total Time Spent with Patient: Total time spent is greater than 50% in coordination of care (as documented) at patient's floor/unit and/or counseling patient: Coding Level of Care Code 68617 INT INP/OBS CARE 3/75MIN Diagnoses Mass of cecum K63.89 Appendix disease K38.9 Abdominal pain R10.9 Nausea without vomiting R11.0
[2025-04-09] MEDS: PIPERACILLIN/TAZOBACTAM 4.5 GM/100 ML BAG IV ONE (04:01)
[2025-04-09] MEDS: HYDROmorphone INJ 0.5 MG/0.5 ML SYR IV PRN ×2 (04:01→20:44)
[2025-04-09] MEDS ORDERED: LORazepam Inj 0.5 MG in SYRINGE 0.25 ML IV PRN (04:36)
[2025-04-09] MEDS: LACTATED RINGER'S 1,000 ML IV SCH (04:59)
[2025-04-09] MEDS ORDERED: ONDANSETRON INJ 2 MG/ML 2 ML VIAL IV PRN (05:26)
--- NOTE | 2025-04-09 08:23 | Electrocardiogram Report ---
Test Reason : Blood Pressure : */* mmHG Vent. Rate : 66 BPM Atrial Rate : 66 BPM P-R Int : 162 ms QRS Dur : 106 ms QT Int : 428 ms P-R-T Axes : 46 14 43 degrees QTcB Int : 448 ms Normal sinus rhythm Normal ECG When compared with ECG of 10-May-2023 14:26, Vent. rate has decreased by 40 bpm QRS duration has increased Confirmed by Dov Reddy ([id number]) on 04/09/2025 8:23:20 AM Referred By: REFERRED SELF Confirmed By: Dov Reddy
[2025-04-09] MEDS: PIPERACILLIN/TAZOBACTAM 4.5 GM/100 ML BAG IV SCH (08:25)
--- NOTE | 2025-04-09 09:13 | Gastrointestinal Consultation ---
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 Will plan colonoscopy Friday. She agrees. Can have liquids until prep. History of Present Illness Reason for Consultation: cecal mass Attending Physician: Ramon Giang MD History of Present Illness 59 year old female presented to hospital yesterday with unrelenting abdominal pain. Had a similar spell a few days before that resolved on its own. CT in ED showed cecal mass with dilated appendix. She has never had a colonoscopy before. She typically doesn't have issues with her stomach although she was told she had a peptic ulcer more than twenty years ago. She has not seen blood in her stool. Her bowel movements are normal. She has been gaining weight, not losing weight. Allergies Allergy/AdvReac Type Severity Reaction Status Date / Time strawberry Allergy Intermediate Hives Unverified 03/31/25 09:37 erythromycin base AdvReac Mild N/V Verified 03/31/25 09:37 Home Medications Medication Instructions Recorded Confirmed Type pantoprazole 40 mg tablet,delayed 40 mg PO DAILY #30 tabs 03/29/24 04/09/25 Rx release (Protonix) atorvastatin 10 mg tablet 10 mg PO QPM #90 tabs 07/16/24 04/09/25 Rx aspirin 81 mg tablet,delayed 81 mg PO DAILY #90 tabs 08/04/24 04/09/25 Rx release citalopram 10 mg tablet 10 mg PO PM #90 tabs 10/26/24 04/09/25 Rx lisinopril 30 mg tablet 30 mg PO QAM #90 tabs 03/31/25 04/09/25 Rx Patient History Medical History Electronic cigarette use Pericardial effusion JUST HAS MORE FLUID AROUND HEART THAN MOST PEOPLE PER PATIENT> REASON FOR LISINOPRIL> DR. MANUEL FOLLOWS > DX 2 YRS AGO Surgical History Hx of bilateral cataract extraction H/O tooth extraction Family History Mother Congestive heart failure Lung cancer Father Congestive heart failure Diabetes Denies family history of Ovarian cancer Prostate cancer Myocardial infarction Breast cancer Colorectal cancer Social History Smoking Status: Current every day smoker Tobacco Type: Cigarettes Age Started Using Tobacco: 14; Age Quit Using Tobacco: 47; packs per day: 1; Cigarettes Per Day: Njoy 1.5 pods a week; Second Hand Exposure: No; Do You Dip or Chew Tobacco: No; Hx Alcohol Use: Yes Alcohol type: beer Alcohol Intake Frequency: 2-4 x/Month Hx Substance Use: No Preferred Language: Greek Communication Ability: Effective Visual Impairment: No Limitations Hearing Ability: Normal Marine 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 Required: No Beliefs That Will Affect Care: None marital status: / Current Living Situation: Family Current Living Situation Comment: Daughter and 2 grandchildren current occupational status: employed 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 How many Children do You have: 2 Feels Safe at Home: Yes Childhood Exposure to Second-Hand Smoke: No Diet: regular caffeine: Yes Dental Care, Regularly: Yes Physical Activity Frequency: Daily Seatbelt Use: always Sunscreen Use: No Assistive Devices: CPAP, Denture - Upper, Denture - Lower and Glasses Review of Systems Review of Systems: All systems reviewed & are unremarkable except as noted in HPI & below Physical Exam Physical Exam: Pleasant woman in no distress Constitutional: WD/WN, vitals as above Neck: trachea midline, no thyromegaly Respiratory: normal respiratory effort, lungs clear to auscultation Cardiovascular: RRR, no murmur, no edema Gastrointestinal (Abdomen): normal bowel sounds, soft, nontender, no hepatosplenomegaly Results & Data Vital Signs (Past 12 Hours) Vital Signs Temp Pulse Pulse Resp BP BP Pulse Ox 04/09/25 08:19 36.6 C 57 L 18 108/61 98 04/09/25 06:14 04/09/25 05:29 36.6 C 61 16 139/82 95 04/09/25 05:00 60 18 128/70 93 04/09/25 04:00 66 18 150/76 H 95 04/09/25 03:00 57 L 16 144/81 H 94 04/09/25 02:06 65 04/09/25 01:00 63 18 145/79 H 96 04/08/25 23:40 67 18 138/79 94 04/08/25 22:33 88 18 168/83 H 96 04/08/25 22:07 69 04/08/25 21:47 36.7 C 86 17 166/102 H 97 O2 Del Method 04/09/25 08:19 Room Air 04/09/25 06:14 Room Air 04/09/25 05:29 Room Air 04/09/25 05:00 Room Air 04/09/25 04:00 Room Air 04/09/25 03:00 Room Air 04/09/25 02:06 04/09/25 01:00 Room Air 04/08/25 23:40 Room Air 04/08/25 22:33 Room Air 04/08/25 22:07 04/08/25 21:47 Room Air Laboratory Results 04/08/25 04/08/25 Range/Units 22:02 21:55 WBC 10.32 (4.8-10.8) K/ul RBC 4.61 (4.20-5.40) M/uL Hgb 13.5 (12.0-16.0) g/dL Hct 39.4 (37.0-47.0) % MCV 85.5 (80.0-100.0) fL MCH 29.3 (25.0-34.0) pg MCHC 34.3 (32.0-36.0) g/dL RDW Std Deviation 38.6 (36.4-46.3) fL RDW Coeff of Teja 12.5 (11.5-14.5) % Plt Count 278 (130-400) K/uL MPV 9.3 L (9.4-12.4) fL Immature Gran % (Auto) 0.4 % Neut % (Auto) 78.3 % Lymph % (Auto) 11.7 % [place] % (Auto) 7.6 % Eos % (Auto) 1.6 % Baso % (Auto) 0.4 % Neut # (Auto) 8.09 H (1.40-6.50) K/uL Lymph # (Auto) 1.21 (1.20-3.40) K/uL [place] # (Auto) 0.78 H (0.11-0.59) K/uL Eos # (Auto) 0.16 (0.00-0.50) K/uL Baso # (Auto) 0.04 (0.00-0.20) K/uL Immature Gran # (Auto) 0.04 (0.01-0.20) K/uL PT 10.5 (9.0-12.0) Seconds INR 1.0 (0.9-1.1) Sodium 137 (136-145) mmol/L Potassium 4.1 (3.5-5.1) mmol/L Chloride 104 (98-107) mmol/L Carbon Dioxide 25 (21-32) mmol/L Anion Gap 8 (3-11) BUN 19 (6-23) mg/dl Creatinine 0.78 (0.6-1.2) mg/dl Est Cr Clr Drug Dosing 79.9 ml/min eGFR 86.90 BUN/Creatinine Ratio 24.4 H (10-20) Glucose 119 H (70-99(Fasting)) mg/dl Calcium 9.7 (8.6-10.3) mg/dl Total Bilirubin 0.4 (0.2-1.0) mg/dl AST 15 (13-39) U/L ALT 20 (7-52) U/L Alkaline Phosphatase 95 (34-104) U/L Total Protein 7.4 (6.0-8.3) gm/dl Albumin 4.2 (3.4-5.0) gm/dl Globulin 3.2 (2.5-4.0) gm/dl Albumin/Globulin Ratio 1.3 (0.9-2) Lipase 5 L (11-82) U/L Urine Color Yellow Urine Appearance Clear (Clear) Urine pH 5.5 (4.5-7.5) Ur Specific [place] 1.017 (1.000-1.030) Urine Protein Negative (Negative) Urine Glucose (UA) Negative (Negative) Urine Ketones Negative (Negative) Urine Blood 2+ H (Negative) Urine Nitrite Negative (Negative) Urine Bilirubin Negative (Negative) Urine Urobilinogen Negative (Negative) Ur Leukocyte Esterase Negative (Negative) Urine WBC (Auto) 0-5 (0-5) /hpf Urine RBC (Auto) 0-2 (0-2) /hpf U Hyaline Cast (Auto) 0-2 (0-2) /lpf U Epithel Cells (Auto) 3-5 H (0-2) /hpf Urine Bacteria (Auto) None Seen (None Seen) Urine Comment Diagnostic Findings Abdomen/Pelvis CT 04/08/25 22:33 Exam(s): CT ABDOMEN + PELVIS With Contrast IV Amt: 92 cc opti 320 EXAM: CT Abdomen and Pelvis With Intravenous Contrast CLINICAL HISTORY: Left lower quadrant Pain. TECHNIQUE: Axial computed tomography images of the abdomen and pelvis with intravenous contrast. CTDI is 22.02 mGy and DLP is 1037.75 mGy-cm. Automated exposure control was utilized for the study. A dose lowering technique was utilized adhering to the principles of ALARA. CONTRAST: Patient received 92 cc opti 320 of IV contrast COMPARISON: No relevant prior studies available. FINDINGS: Lung bases: Unremarkable. No mass. No consolidation. Pleural space: Trace bilateral pleural effusions. ABDOMEN: Liver: Unremarkable. No mass. Gallbladder and bile ducts: Unremarkable. No calcified stones. No ductal dilation. Pancreas: Unremarkable. No mass. No ductal dilation. Spleen: Unremarkable. No splenomegaly. Adrenals: Unremarkable. No mass. Kidneys and ureters: Unremarkable. No solid mass. No hydronephrosis. Stomach and bowel: Unremarkable. No obstruction. No mucosal thickening. PELVIS: Appendix: There is a 5.2 cm mass of the cecum with a distended fluid- filled appendix measuring 1.2 cm. Bladder: Unremarkable. No mass. Reproductive: The uterus and adnexa are within normal limits. ABDOMEN and PELVIS: Intraperitoneal space: Trace free fluid in the abdomen and pelvis is nonspecific. No free air. Bones/joints: No acute fracture. No dislocation. Soft tissues: A small fat containing umbilical hernia is present. Vasculature: Moderate atherosclerosis. No aneurysm. Lymph nodes: Unremarkable. No enlarged lymph nodes. IMPRESSION: 1. There is a 5.2 cm mass of the cecum with a distended fluid-filled appendix measuring 1.2 cm. This is highly concerning for malignancy. 2. Trace free fluid in the abdomen and pelvis is nonspecific. 3. Trace bilateral pleural effusions. Electronically signed by: Zoya Mendoza MD 04/09/25 02:15 AM
[2025-04-09] MEDS: ACETAMINOPHEN 1,000 MG/100 ML VIAL IV PRN (11:58)
--- NOTE | 2025-04-09 13:03 | Surgery Progress Note ---
Date of Service April 09, 2025 Assessment & Plan (1) Mass of cecum: (2) Abdominal pain: (3) Appendix disease: Plan Patient currently has no evidence of perforated viscus, this mass in the cecum does not appear to be obstructing, and she does not have any overt peritoneal si gns, so no indication for emergent surgical exploration at this time. We would prefer to have a tissue diagnosis of the cecal mass in order to develop an appropriate surgical plan. We understand that gastroenterology is planning on performing a colonoscopy this coming Friday, April 11, 2025. For now, may be on a clear liquid diet, continue with serial abdominal exams, and observe for return of bowel function. Continue IV antibiotics and trend white blood cell count and temps. Remainder of her care per the primary hospitalist team, general surgery will continue to follow for now. Admission and Anticipated Discharge Date Admission Date: April 09, 2025 Subjective Patient currently states that she feels well, does continue to admit of some right sided abdominal pain, seems to come and go, well-tolerated with current pain medication regimen. Patient has remained n.p.o. since she was admitted, denies any nausea or vomiting, denies flatus or bowel movement yet. White blood cell count this morning is normal, on Zosyn, afebrile. CT scan was further reviewed, the appendix does appear dilated, but minimal wall thickening, no periappendiceal fat stranding noted., Could be reactionary to a mass in the cecum that does not appear to be obstructing. Discussed in detail with the patient and patient's family member present regarding the treatment goals of trying to establish a diagnosis of this a cecal mass while treating her potential appendicitis with IV antibiotics. Physical Exam Physical Exam: Gen: Awake and alert, resting comfortably in bed in NAD CV: RRR PULM: non-labored breathing Abd: Abd soft, non-distended, mildly tender to palpation to the right flank, both upper and lower quadrants, no tenderness to palpation to the left side of abdomen, no peritoneal signs ext: no edema to bilateral lower ext, SCDs in place, non-tender, feet warm and well perfused Results & Data Vital Signs (Past 12 Hours) Vital Signs Temp Pulse Pulse Resp BP Pulse Ox O2 Del Method 04/09/25 08:19 36.6 C 57 L 18 108/61 98 Room Air 04/09/25 06:14 Room Air 04/09/25 05:29 36.6 C 61 16 139/82 95 Room Air 04/09/25 05:00 60 18 128/70 93 Room Air 04/09/25 04:00 66 18 150/76 H 95 Room Air 04/09/25 03:00 57 L 16 144/81 H 94 Room Air 04/09/25 02:06 65 04/09/25 01:00 63 18 145/79 H 96 Room Air PG Care Time/CCT Total # of Minutes Spent Total Time Spent with Patient: Total time spent is greater than 50% in coordination of care (as documented) at patient's floor/unit and/or counseling patient:35 [place] [address] SUB INP/OBS CARE 2/35MIN Patient Type Established Diagnoses Mass of cecum K63.89 Abdominal pain R10.9 Appendix disease K38.9
[2025-04-10 06:41] LABS: Hematocrit (blood only) 33.9 % (37.0-47.0); Hemoglobin 11.3 g/dL (12.0-16.0); Immature Granulocytes # (auto) 0.02 K/uL (0.01-0.20); Immature Granulocytes % (auto) 0.4 %; Mean Corpuscular Hemoglobin 29.0 pg (25.0-34.0); Mean Corpuscular Volume 87.1 fL (80.0-100.0); Platelet Count 219 K/uL (130-400); RDW Standard Deviation 39.5 fL (36.4-46.3); Red Blood Count 3.89 M/uL (4.20-5.40); White Blood Count 4.76 K/ul (4.8-10.8)
[2025-04-10 07:12] LABS: Alanine Aminotransferase 13.0 U/L (7-52); Albumin Globulin Ratio 1.6 (0.9-2); Albumin Level 3.5 gm/dl (3.4-5.0); Alkaline Phosphatase 65.0 U/L (34-104); Anion Gap 5.0 (3-11); Bilirubin,Total 0.5 mg/dl (0.2-1.0); Blood Urea Nitrogen 10.0 mg/dl (6-23); Calcium 8.8 mg/dl (8.6-10.3); Carbon Dioxide 29.0 mmol/L (21-32); Chloride 106.0 mmol/L (98-107); Creatinine Clr Calc Pharmacy 67.2 ml/min; Globulin 2.2 gm/dl (2.5-4.0); Glucose 87.0 mg/dl (70-99(Fasting)); Magnesium 1.9 mg/dl (1.7-2.4); Potassium 3.9 mmol/L (3.5-5.1); Sodium 140.0 mmol/L (136-145); Total Protein 5.7 gm/dl (6.0-8.3)
[2025-04-10 07:14] LABS: INR 1.1 (0.9-1.1); Partial Thromboplastin Time 26 Seconds (21-31); Prothrombin Time 11.1 Seconds (9.0-12.0)
--- NOTE | 2025-04-10 08:44 | Gastroenterology Progress Note ---
Date of Service April 10, 2025 Assessment & Plan (1) Cecum mass: Plan: Will give her prep tonight for procedure tomorrow. Admission and Anticipated Discharge Date Admission Date: April 09, 2025 Subjective Feels fine. No abdominal pain. Tolerating liquids. Ready to have colonoscopy tomorrow Physical Exam Physical Exam: She looks well Constitutional: WD/WN, vitals as above Results & Data Vital Signs (Past 12 Hours) Vital Signs Temp Pulse Resp BP Pulse Ox O2 Del Method 04/10/25 07:28 36.6 C 61 18 147/74 H 95 Room Air 04/09/25 22:41 36.3 C L 60 17 147/77 H 91 Room Air
--- NOTE | 2025-04-10 09:40 | Hospitalist Progress Note ---
Date of Service April 10, 2025 Assessment & Plan (1) Mass of cecum: Plan: 5.2 cm cecum mass/distended fluid-filled appendix- -general surgery consult appreciated- awaiting biposy results from conloscopy -GI planning for colonoscopy 04/11/25 -clear liquids -IVF -pain control -zofran prn (2) Appendix disease: Plan: -con't zosyn -surgery following -no dictation for intervention at this time (3) Hypertension: Plan: Holding lisinopril and aspirin Hydralazine 10 mg IV every 4 hours as needed for systolic blood pressure greater than (4) Anxiety: Plan: Holding citalopram while n.p.o. Lorazepam 0.5 mg IV every 8 hours as needed Plan The patient is a 59-year-old female with past medical history significant for atherogenic dyslipidemia, abdominal bruit, CRYSTAL, RLS, GERD, anxiety, hypertension, and depression. She presents to the emergency department with complaint of severe left sided and left lower quadrant abdominal pain began around 2:00 in the afternoon, accompanied by nausea without vomiting. In the past she when she has had abdominal pain she has taken Protonix and has had relief, however, she did not have significant improvement with twice this time, and thus presented to the ED for assessment. Workup in the emergency department included a CT of abdomen and pelvis which showed a 5.2 cm cecum mass, a distended fluid-filled appendix, which was concerning for malignancy. From the ED she received the following: Normal saline 1 L bolus, morphine 4 mg IV, Zofran 4 mg IV, acetaminophen 1 g IV, famotidine 20 mg IV, Protonix 40 mg IV, and morphine 4 mg IV. She was then referred for evaluation for admission to [facility] service. Admission and Anticipated Discharge Date Admission Date: April 09, 2025 Subjective No events overnight. Pt resting comfortably in bed. Review of Systems Review of Systems: CONST: Negative for fever, body aches and chills. HENT: Negative for neck pain/stiffness, headache, congestion, sore throat, swelling. EYES: Negative for discharge/pain or vision changes. RESP: Negative for cough/hemoptysis and shortness of breath. CV: Negative chest pain, difficulty breathing, palpitations. ABD: Negative pain, nausea, vomiting. : Negative increase frequency, dysuria, blood in urine or stool. MUSC: Negative for muscle aches, edema. SKIN: Negative rash, lesions/sores. NEURO: Negative headache, dizziness, weakness. Physical Exam Physical Exam: GENERAL APPEARANCE NAD, activity normal for age, well developed/ well nourished, no cyanosis, pallor, or diaphoresis. EYES lids/conjunctiva normal. EARS/NOSE/THROAT Mucous membranes moist, nares normal, lips/teeth normal uvula midline without oral pharyngeal erythema, exudate or swelling TMs normal bilaterally. No lymphangitis/lymphedema. HEAD/NECK normocephalic atraumatic, no facial trauma, neck is supple. RESPIRATORY respiratory effort normal, speaks in full sentences, no tripod position, no accessory muscle use. Lungs clear to auscultation without rhonchi, wheezes, rales CARDIAC Regular rate and rhythm, no edema. ABDOMINAL Soft, ND/NT. No evidence of fluid wave. No pulsatile masses on exam, rebound tenderness, Little sign or pain over Mcburney's point. MUSCLES/EXTREMITIES No abnormal range of motion, no swelling. SKIN Warm, pink and dry. No rashes, dermatoses, petechiae or lesions. NEUROLOGICAL Speech is clear and appropriate. Normal level of consciousness. Gait and coordination are normal. 5/5 strength in all extremities. PSYCH Normal mood and affect. Judgement/competence is appropriate Results & Data Results & Data Vital Signs (Past 12 Hours) Vital Signs Temp Pulse Resp BP Pulse Ox O2 Del Method 04/10/25 07:28 36.6 C 61 18 147/74 H 95 Room Air 04/09/25 22:41 36.3 C L 60 17 147/77 H 91 Room Air PG Care Time/CCT Total # of Minutes Spent Total Time Spent with Patient: Total time spent is greater than 50% in coordination of care (as documented) at patient's floor/unit and/or counseling patient: Coding Level of Care Code 27546 SUB INP/OBS CARE 2/35MIN Diagnoses Mass of cecum K63.89 Appendix disease K38.9 Primary hypertension I10 Hypertension type: primary hypertension Anxiety F41.9 (3) Hypertension Hypertension type: primary hypertension Qualified Code(s): I10 - Essential (primary) hypertension
[2025-04-10] MEDS: SODIUM CHLORIDE 0.9% 1,000 ML IV SCH (16:03)
--- NOTE | 2025-04-10 17:02 | Surgery Progress Note ---
<Statement entered by Josh Andrew DO - 04/10/25 18:10> I have seen and examined this patient with the surgical PA and I agree with this plan Date of Service April 10, 2025 Assessment & Plan (1) Appendix disease: (2) Nausea without vomiting: (3) Mass of cecum: Plan We appreciate gastroenterology's recommendations and their plan to proceed to the GI suite for colonoscopy tomorrow and attempt a biopsy of the cecal mass. Further operative plans would be dependent on these findings, but no plans for emergent exploration at this time. Remainder of her care per the primary medicine team, general surgery will continue to follow for now. Admission and Anticipated Discharge Date Admission Date: April 09, 2025 Subjective Patient currently states that she feels well, states that her abdominal pain is still present but improved, has been on a clear liquid diet which she is tolerated well without any nausea or vomiting. Admits to passing flatus but no bowel movement yet. Patient has remained hemodynamically stable, not on any pressors, maintaining adequate O2 sats on room air. White blood cell count is normal today at 4.7, down from yesterday at 10.3, on Zosyn for possible appendicitis, otherwise electrolytes are within normal limits. Physical Exam Physical Exam: Gen: Awake and alert, resting comfortably in bed in NAD CV: RRR PULM: non-labored breathing Abd: Abd soft, non-distended, mildly tender to palpation to the right flank, both upper and lower quadrants, no tenderness to palpation to the left side of abdomen, no peritoneal signs ext: no edema to bilateral lower ext, SCDs in place, non-tender, feet warm and well perfused Results & Data Vital Signs (Past 12 Hours) Vital Signs Temp Pulse Resp BP Pulse Ox O2 Del Method 04/10/25 14:26 36.7 C 64 18 156/93 H 95 Room Air 04/10/25 07:28 36.6 C 61 18 147/74 H 95 Room Air PG Care Time/CCT Total # of Minutes Spent Total Time Spent with Patient: Total time spent is greater than 50% in coordination of care (as documented) at patient's floor/unit and/or counseling patient: Coding Level of Care Code 46364 SUB INP/OBS CARE 06/05MIN Diagnoses Appendix disease K38.9 Nausea without vomiting R11.0 Mass of cecum K63.89
[2025-04-10] MEDS: ONDANSETRON INJ 2 MG/ML 2 ML VIAL IV PRN (19:01)
[2025-04-10] MEDS: LAVAGE SOLUTION 4000ML PO SCH (19:58)
[2025-04-11 08:12] LABS: Hematocrit (blood only) 34.1 % (37.0-47.0); Hemoglobin 11.7 g/dL (12.0-16.0); Immature Granulocytes # (auto) 0.01 K/uL (0.01-0.20); Immature Granulocytes % (auto) 0.2 %; Mean Corpuscular Hemoglobin 29.8 pg (25.0-34.0); Mean Corpuscular Volume 87.0 fL (80.0-100.0); Platelet Count 216 K/uL (130-400); RDW Standard Deviation 39.0 fL (36.4-46.3); Red Blood Count 3.92 M/uL (4.20-5.40); White Blood Count 4.86 K/ul (4.8-10.8)
--- NOTE | 2025-04-11 08:27 | Anesthesiology Consultation ---
Date of Service April 11, 2025 Assessment & Plan Chart Review Chart Review: Acceptable Risk for Surgery and Patient NOT seen in Pre Admission Testing Consults Requested none ASA ASA3 Proposed Anesthesia Anesthesia Type: MAC Risk / Benefits Reviewed With: PT / POA / Parent / Guardian, Accepts Plan and Informed Consent Obtained History Surgery Operation Date: 04/11/25 16:30 Proposed Procedures p Colonoscopy Dr. Louis Myers Jr, MD Height/Weight Height: 5 ft 5 in Weight: 79.9 kg Allergies Allergy/AdvReac Type Severity Reaction Status Date / Time strawberry Allergy Intermediate Hives Unverified 03/31/25 09:37 erythromycin base AdvReac Mild N/V Verified 03/31/25 09:37 Medications Home Medications Medication Instructions Recorded Confirmed Last Taken pantoprazole 40 mg tablet,delayed 40 mg PO DAILY #30 tabs 03/29/24 04/09/25 Unknown release (Protonix) atorvastatin 10 mg tablet 10 mg PO QPM #90 tabs 07/16/24 04/09/25 Unknown aspirin 81 mg tablet,delayed 81 mg PO DAILY #90 tabs 08/04/24 04/09/25 Unknown release citalopram 10 mg tablet 10 mg PO PM #90 tabs 10/26/24 04/09/25 Unknown lisinopril 30 mg tablet 30 mg PO QAM #90 tabs 03/31/25 04/09/25 Unknown Active Medications Generic Name Dose Route Start Last Admin Trade Name Freq PRN Reason Stop Dose Admin Hydromorphone HCl 0.25 mg 04/09/25 03:40 04/09/25 08:29 Hydromorphone Inj 0.5 Mg/0.5 Ml Syr IV 04/23/25 03:39 0.25 mg Q3H PRN Administration Moderate Pain (Scale 4, 5, 6) Hydromorphone HCl 0.5 mg 04/09/25 03:40 04/09/25 20:44 Hydromorphone Inj 0.5 Mg/0.5 Ml Syr IV 04/23/25 03:39 0.5 mg Q3H PRN Administration Severe Pain (Scale 7, 8, 9,10) Piperacillin Sod/Tazobactam Sod 4.5 gm in 100 mls @ 25 mls/hr 04/09/25 09:00 04/11/25 05:12 Zosyn IV 04/19/25 08:59 Infused Q8H RJEI Infusion Protocol Acetaminophen 1,000 mg in 100 mls @ 400 mls/hr 04/09/25 03:40 04/10/25 15:36 Ofirmev IV 04/12/25 03:39 Infused Q8H PRN Infusion Pain or Fever Sodium Chloride 1,000 mls @ 100 mls/hr 04/10/25 15:45 04/11/25 02:08 Nss IV 04/13/25 15:44 100 mls/hr .Q10H REJI Administration Ondansetron HCl 4 mg 04/09/25 05:26 04/10/25 19:01 Ondansetron Inj 2 Mg/Ml 2 Ml Vial IV 05/09/25 05: 4 mg Q6H PRN Administration NAUSEA/VOMITING NPO Date Last Intake of Fluids: 04/10/25 Date Last Intake of Solids: 04/10/25 Past Medical History Medical History Electronic cigarette use Pericardial effusion JUST HAS MORE FLUID AROUND HEART THAN MOST PEOPLE PER PATIENT> REASON FOR LISINOPRIL> DR. MANUEL FOLLOWS > DX 2 YRS AGO Exercise / Class Metabolic Activity III < 4 Walking/Shop/Light housework Past Family History Family History Mother Congestive heart failure Lung cancer Father Congestive heart failure Diabetes Denies family history of Ovarian cancer Prostate cancer Myocardial infarction Breast cancer Colorectal cancer Past Surgical History Surgical History Hx of bilateral cataract extraction H/O tooth extraction Past Anesthesia History No Hx of Anesthesia Complications and No Family Hx of Anesthesia Complications History of PONV No Hx of PONV and No Hx of Motion Sickness Social History Smoking Status: Current every day smoker tobacco type: e-cigarettes Smoking cigarettes per day: Njoy 1.5 pods a week Do You Dip or Chew Tobacco: No Hx Alcohol Use: Yes Alcohol type: beer alcohol intake frequency: a few times a week Alcohol Intake Frequency Comment: 1-2 few times a week Hx Substance Use: No substance use type: does not use Review of Systems Respiratory: + cough 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 Physical Exam Vital Signs Last Vital Signs Temp 36.3 C L 04/11/25 07:30 Pulse 72 04/11/25 07:30 Resp 16 04/11/25 07:30 BP 143/73 H 04/11/25 07:30 Pulse Ox 94 04/11/25 07:30 O2 Del Method Room Air 04/11/25 07:30 Constitutional + obese; no acute distress ENMT Mouth: no TMJ abnormality Thyromental Distance: > or= 3.5 Finger Breadths Mallampati Class: II missing teeth Neck normal visual inspection Respiratory normal respiratory effort; no respiratory distress Auscultation: + rhonchi Cardiovascular Rate/Rhythm: regular rate and regular rhythm Musculoskeletal Spine: normal cervical ROM Extremities: extremities normal to inspection Neurologic moves all extremities Motor/Sensory: no sensory deficit Psychiatric Orientation: alert and oriented x 3 Testing Laboratory Results 04/11/25 07:42 PT 11.1 Seconds (9.0-12.0) 04/10/25 05:57 INR 1.1 (0.9-1.1) 04/10/25 05:57 APTT 26 Seconds (21-31) 04/10/25 05:57 Urine Color Yellow 04/08/25 21:55 Urine Appearance Clear (Clear) 04/08/25 21:55 Urine pH 5.5 (4.5-7.5) 04/08/25 21:55 Ur Specific [place] 1.017 (1.000-1.030) 04/08/25 21:55 Urine Protein Negative (Negative) 04/08/25 21:55 Urine Glucose (UA) Negative (Negative) 04/08/25 21:55 Urine Ketones Negative (Negative) 04/08/25 21:55 Urine Nitrite Negative (Negative) 04/08/25 21:55 Ur Leukocyte Esterase Negative (Negative) 04/08/25 21:55 Urine WBC (Auto) 0-5 /hpf (0-5) 04/08/25 21:55 Urine RBC (Auto) 0-2 /hpf (0-2) 04/08/25 21:55 U Hyaline Cast (Auto) 0-2 /lpf (0-2) 04/08/25 21:55 U Epithel Cells (Auto) 3-5 /hpf (0-2) H 04/08/25 21:55 Urine Bacteria (Auto) None Seen (None Seen) 04/08/25 21:55
[2025-04-11 08:31] LABS: Alanine Aminotransferase 14.0 U/L (7-52); Albumin Globulin Ratio 1.5 (0.9-2); Albumin Level 3.7 gm/dl (3.4-5.0); Alkaline Phosphatase 65.0 U/L (34-104); Anion Gap 6.0 (3-11); Bilirubin,Total 0.4 mg/dl (0.2-1.0); Blood Urea Nitrogen 6.0 mg/dl (6-23); Calcium 8.7 mg/dl (8.6-10.3); Carbon Dioxide 27.0 mmol/L (21-32); Chloride 110.0 mmol/L (98-107); Creatinine Clr Calc Pharmacy 78.1 ml/min; Globulin 2.5 gm/dl (2.5-4.0); Glucose 87.0 mg/dl (70-99(Fasting)); Magnesium 2.0 mg/dl (1.7-2.4); Potassium 3.7 mmol/L (3.5-5.1); Sodium 143.0 mmol/L (136-145); Total Protein 6.2 gm/dl (6.0-8.3)
[2025-04-11 08:39] LABS: INR 1.1 (0.9-1.1); Partial Thromboplastin Time 26 Seconds (21-31); Prothrombin Time 11.4 Seconds (9.0-12.0)
--- NOTE | 2025-04-11 10:06 | Surgery Progress Note ---
Date of Service April 11, 2025 Assessment & Plan (1) Mass of cecum: (2) Appendix disease: Plan: Has been on IV abx, continue for now until colonoscopy results Further plan pending colonoscopy result Ambulate Further oral and DVT ppx recs per GI Surgery will follow for now Admission and Anticipated Discharge Date Admission Date: April 09, 2025 Subjective Pt seen and examined this am. She is having BMS and passing gas since bowel prep. Denies any further abdominal pain. No N/V. Physical Exam Constitutional: average body habitus; not ill appearing, not disheveled, not in distress and not diaphoretic Respiratory: normal respiratory effort; no respiratory distress, no labored breathing and does not use accessory muscles Cardiovascular: Rate/Rhythm: regular rate; not tachycardic Gastrointestinal (Abdomen): Inspection/Auscultation: abdomen normal to inspection; abdomen not distended Percussion/Palpation: + abdomen tender (mild TTP infraumbilical to RLQ) and abdomen soft; no guarding and abdomen not rigid Results & Data Vital Signs (Past 12 Hours) Vital Signs Temp Pulse Resp BP Pulse Ox O2 Del Method 04/11/25 07:30 36.3 C L 72 16 143/73 H 94 Room Air 04/10/25 22:38 36.8 C 55 L 18 157/74 H 97 Room Air PG Care Time/CCT Total # of Minutes Spent Total Time Spent with Patient: Total time spent is greater than 50% in coordination of care (as documented) at patient's floor/unit and/or counseling patient: Coding Level of Care Code 48445 SUB INP/OBS CARE 06/05MIN Diagnoses Mass of cecum K63.89 Appendix disease K38.9
--- NOTE | 2025-04-11 10:56 | History & Physical Report ---
Date of Service April 11, 2025 Assessment & Plan (1) Cecum mass: Plan: Pleasant woman who needs colonoscopy. Procedure and risks discussed. She agrees Admission and Anticipated Discharge Date Admission Date: April 09, 2025 History of Present Illness Chief Complaint: cecal mass Primary Care Provider: Chacorta Mcfadden, DO 59 year old female with cecal mass seen on CT. She is here for colonoscopy Allergies Allergy/AdvReac Type Severity Reaction Status Date / Time strawberry Allergy Intermediate Hives Unverified 04/11/25 10:54 erythromycin base AdvReac Mild N/V Verified 04/11/25 10:54 Home Medications Medication Instructions Recorded Confirmed Type pantoprazole 40 mg tablet,delayed 40 mg PO DAILY #30 tabs 03/29/24 04/09/25 Rx release (Protonix) atorvastatin 10 mg tablet 10 mg PO QPM #90 tabs 07/16/24 04/09/25 Rx aspirin 81 mg tablet,delayed 81 mg PO DAILY #90 tabs 08/04/24 04/09/25 Rx release citalopram 10 mg tablet 10 mg PO PM #90 tabs 10/26/24 04/09/25 Rx lisinopril 30 mg tablet 30 mg PO QAM #90 tabs 03/31/25 04/09/25 Rx Past Med/Surg History Problem List Appendix disease Nausea without vomiting Mass of cecum (Acute) Cecum mass Abdominal pain (Acute) Atherogenic dyslipidemia Abdominal bruit Screening for hypercholesterolemia Exertional dyspnea Sleep disturbances Obstructive sleep apnea syndrome RLS (restless legs syndrome) Hot flashes Routine gynecological examination GERD (gastroesophageal reflux disease) (Chronic) Anxiety (Chronic) Hypertension (Chronic) Depression (Chronic) Medical History Electronic cigarette use Pericardial effusion JUST HAS MORE FLUID AROUND HEART THAN MOST PEOPLE PER PATIENT> REASON FOR LISINOPRIL> DR. MCFADDEN FOLLOWS > DX 2 YRS AGO Surgical History Hx of bilateral cataract extraction H/O tooth extraction Family History Mother Congestive heart failure Lung cancer Father Congestive heart failure Diabetes Denies family history of Ovarian cancer Prostate cancer Myocardial infarction Breast cancer Colorectal cancer Social History Smoking Status: Current every day smoker Tobacco Type: Cigarettes Age Started Using Tobacco: 14; Age Quit Using Tobacco: 47; packs per day: 1; Cigarettes Per Day: Njoy 1.5 pods a week; Second Hand Exposure: No; Do You Dip or Chew Tobacco: No; Hx Alcohol Use: Yes Alcohol type: beer Alcohol Intake Frequency: 2-4 x/Month Hx Substance Use: No Preferred Language: Ecuadorean Communication Ability: Effective Visual Impairment: No Limitations Hearing Ability: Normal Picture Enlarger Required: No Beliefs That Will Affect Care: None marital status: / Current Living Situation: Family Current Living Situation Comment: Daughter and 2 grandchildren current occupational status: employed 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 How many Children do You have: 2 Feels Safe at Home: Yes Childhood Exposure to Second-Hand Smoke: No Diet: regular caffeine: Yes Dental Care, Regularly: Yes Physical Activity Frequency: Daily Seatbelt Use: always Sunscreen Use: No Assistive Devices: CPAP, Denture - Upper, Denture - Lower and Glasses Physical Exam Respiratory: normal respiratory effort, lungs clear to auscultation Cardiovascular: RRR, no murmur, no edema Gastrointestinal (Abdomen): normal bowel sounds, soft, nontender, no hepatosplenomegaly ASA Classification ASA ASA3 Results & Data Vital Signs (Past 12 Hours) Vital Signs Temp Pulse Resp BP Pulse Ox O2 Del Method 04/11/25 10:49 36.8 C 55 L 18 152/84 H 96 Room Air 04/11/25 07:30 36.3 C L 72 16 143/73 H 94 Room Air Code Status & VTE Plan VTE Prophylaxis Plan VTE Prophylaxis will be ordered: Yes
--- NOTE | 2025-04-11 11:40 | GI REPORT ---
[facility] Patient: JLUIS PRADO : 1965 Sex at : Female Age: 59 Years Procedure: Colonoscopy Date: 04/11/2025 Attending Physician: Elton Myers MD Referring MD: Chaka Allred MD Indications: - Abnormal CT of the GI tract Medications: - Monitored Anesthesia Care - See the Anesthesia note for documentation of the administered medications Complications: - No immediate complications. Estimated Blood Loss: - Estimated blood loss: None. Procedure: - ASA Grade Assessment: III - A patient with severe systemic disease. - The adult colonoscope was introduced through the anus and advanced to the cecum, identified by appendiceal orifice and ileocecal valve. - The colonoscopy was performed without difficulty. - The quality of the bowel preparation was evaluated using the BBPS ([place] Bowel Preparation Scale) with scores of: Right Colon = 3, Transverse Colon = 3 and Left Colon = 3 (entire mucosa seen well with no residual staining, small fragments of stool or opaque liquid). The total BBPS score equals 9. - The ileocecal valve, appendiceal orifice, and rectum were photographed. Findings: - The rectum, sigmoid colon, descending colon, splenic flexure, transverse colon, hepatic flexure, ascending colon and cecum appeared normal. Impression: - The rectum, sigmoid colon, descending colon, splenic flexure, transverse colon, hepatic flexure, ascending colon and cecum are normal. - No specimens collected. Recommendation: - Return patient to [facility] for ongoing care. Procedure Code(s): - 10137, Colonoscopy, flexible; diagnostic, including collection of specimen(s) by brushing or washing, when performed (separate procedure) Diagnosis Code(s): - R93.3, Abnormal findings on diagnostic imaging of other parts of digestive tract CPT(R) - 2023 copyright [employer]. All Rights Reserved. The CPT codes, CCI edits and ICD codes generated are intended as suggestions and were generated based on input data. These codes are preliminary and upon right of way maintenance supervisor review may be revised to meet current compliance and payer requirements. The provider is responsible for the final determination of appropriate codes, and modifiers. Dr. Elton Myers MD This document has been electronically signed. Note Initiated:04/11/2025 Note Completed:04/11/2025 11:39 AM \\[email or web address]\Provation\Results\[id number]
--- NOTE | 2025-04-11 11:41 | Communication Note ---
Date of Service: April 11, 2025 Colonoscopy did not reveal cecal mass. Increase in mucous coming from appendiceal orifice so perhaps she has a mucocele of the appendix or primary appendiceal lesion. Recommend repeat CT scan and if mass still present then she will need surgery opinion.
--- NOTE | 2025-04-11 11:48 | Anesthesiology Progress Note ---
Date of Service April 11, 2025 Anesthesia Post Procedure Vital Signs Vital Signs: Temp Pulse Resp BP Pulse Ox O2 Del Method 04/11/25 11:43 65 16 132/68 97 Room Air 04/11/25 10:55 Room Air 04/11/25 10:49 36.8 C 55 L 18 152/84 H 96 Room Air 04/11/25 07:30 36.3 C L 72 16 143/73 H 94 Room Air 04/10/25 22:38 36.8 C 55 L 18 157/74 H 97 Room Air 04/10/25 21:25 Room Air 04/10/25 14:26 36.7 C 64 18 156/93 H 95 Room Air Pain Intensity Abdomen: Pain Intensity: 6 Transfer of Care Handoff Completed per policy Notes Mental Status: alert / awake / arousable and participated in evaluation Patient Amnestic to Procedure: Yes Nausea / Vomiting: adequately controlled Pain: adequately controlled Airway Patency, RR, SpO2: stable & adequate BP & HR: stable & adequate Hydration State: stable & adequate Anesthetic Complications: no major complications apparent and Pt Satisfied with anesthetic care
[2025-04-11] MEDS: PROPOFOL IV EMULSION 10 MG/ML 20 ML VIAL IV ONE (12:39)
[2025-04-11] MEDS: LIDOCAINE 2% 2 ML VIAL/AMP(20MG/ML) INFIL ONE (12:39)
[2025-04-11] MEDS ORDERED: ACETAMINOPHEN 500 MG TAB PO PRN (15:33)
[2025-04-11] MEDS: PIPERACILLIN/TAZOBACTAM 4.5 GM/100 ML BAG IV SCH (17:21)
--- NOTE | 2025-04-11 19:25 | Hospitalist Progress Note ---
Date of Service April 11, 2025 Assessment & Plan (1) Mass of cecum: (2) Appendix disease: (3) Hypertension: (4) Anxiety: Plan #Mass of cecum 5.2 cm cecum mass/distended fluid-filled appendix- not seen on colonoscopy General surgery planning on appendectomy tomorrow NPO after midnight Continue IV Zosyn per surgery recommendations #Hypertension Hold lisinopril prior to surgery #GERD Restart pantoprazole #Anxiety Restart citalopram #Hyperlipidemia Restart atorvastatin VTE Prophylaxis - deferred due to surgery planned for tomorrow Disposition - continue on med/surg Admission and Anticipated Discharge Date Admission Date: April 09, 2025 Subjective No nausea, vomiting, abdominal pain. Had colonoscopy earlier today. Discussed with GI and general surgery and planning on appendectomy today. Physical Exam Respiratory: normal respiratory effort, lungs clear to auscultation Cardiovascular: RRR, no murmur, no edema Gastrointestinal (Abdomen): normal bowel sounds, soft, nontender, no hepatosplenomegaly Results & Data Results & Data Vital Signs (Past 12 Hours) Vital Signs Temp Pulse Resp BP Pulse Ox O2 Del Method 04/11/25 16:14 36.5 C 63 18 156/78 H 96 Room Air 04/11/25 11:47 56 L 18 156/85 H 97 Room Air 04/11/25 11:32 65 16 132/68 97 Room Air 04/11/25 10:55 Room Air 04/11/25 10:49 36.8 C 55 L 18 152/84 H 96 Room Air 04/11/25 07:30 36.3 C L 72 16 143/73 H 94 Room Air PG Care Time/CCT Total # of Minutes Spent Total Time Spent with Patient: Total time spent is greater than 50% in coordination of care (as documented) at patient's floor/unit and/or counseling patient: Coding Level of Care Code 44413 SUB INP/OBS CARE 2/35MIN Diagnoses Mass of cecum K63.89 Appendix disease K38.9 Primary hypertension I10 Hypertension type: primary hypertension Anxiety F41.9 (3) Hypertension Hypertension type: primary hypertension Qualified Code(s): I10 - Essential (primary) hypertension
[2025-04-11] MEDS: CITALOPRAM 20 MG TAB PO SCH (20:05)
[2025-04-11] MEDS: ATORVASTATIN 10 MG TAB PO SCH (20:06)
[2025-04-12] MEDS ORDERED: DEXAMETHASONE SOD INJ 4 MG/ML VIAL ONE (07:20)
[2025-04-12] MEDS ORDERED: ROCURONIUM BROMIDE 10 MG/ML 5 ML VIAL IV ONE (07:20)
[2025-04-12] MEDS ORDERED: ONDANSETRON INJ 2 MG/ML 2 ML VIAL ONE (07:20)
[2025-04-12] MEDS ORDERED: LIDOCAINE 2% 2 ML VIAL/AMP(20MG/ML) INFIL ONE (07:20)
[2025-04-12] MEDS ORDERED: MIDAZOLAM HCL 1 MG/ML 2ML VIAL ONE (07:20)
[2025-04-12] MEDS ORDERED: PROPOFOL IV EMULSION 10 MG/ML 20 ML VIAL IV ONE (07:21)
[2025-04-12] MEDS: LACTATED RINGER'S 1,000 ML IV SCH (07:28)
--- NOTE | 2025-04-12 07:34 | History & Physical Bridge Note ---
Date of Service April 12, 2025 History & Physical Bridge Note I have examined the patient, reviewed the History & Physical and in the interval since the performance of the History & Physical I have noted the following changes of clinical significance: no changes noted
--- NOTE | 2025-04-12 07:38 | Anesthesiology Consultation ---
Date of Service April 12, 2025 Assessment & Plan Chart Review Chart Review: Acceptable Risk for Surgery and Patient NOT seen in Pre Admission Testing Consults Requested none ASA ASA2 Proposed Anesthesia Anesthesia Type: General Risk / Benefits Reviewed With: PT / POA / Parent / Guardian, Accepts Plan and Informed Consent Obtained History Surgery Operation Date: 04/11/25 16:30 Proposed Procedures p Colonoscopy Dr. Myers - Elton Myers Jr, MD Operation Date: 04/12/25 07:00 Proposed Procedures p Laparoscopic Appendectomy - Adi Dobbins MD Height/Weight Height: 5 ft 5 in Weight: 79.9 kg Allergies Allergy/AdvReac Type Severity Reaction Status Date / Time strawberry Allergy Intermediate Hives Unverified 04/11/25 10:54 erythromycin base AdvReac Mild N/V Verified 04/11/25 10:54 Medications Home Medications Medication Instructions Recorded Confirmed Last Taken pantoprazole 40 mg tablet,delayed 40 mg PO DAILY #30 tabs 03/29/24 04/09/25 Unknown release (Protonix) atorvastatin 10 mg tablet 10 mg PO QPM #90 tabs 07/16/24 04/09/25 Unknown aspirin 81 mg tablet,delayed 81 mg PO DAILY #90 tabs 08/04/24 04/11/25 04/08/24 release citalopram 10 mg tablet 10 mg PO PM #90 tabs 10/26/24 04/09/25 Unknown lisinopril 30 mg tablet 30 mg PO QAM #90 tabs 03/31/25 04/09/25 Unknown Active Medications Generic Name Dose Route Start Last Admin Trade Name Freq PRN Reason Stop Dose Admin Atorvastatin Calcium 10 mg 04/11/25 21:00 04/11/25 20:06 Atorvastatin 10 Mg Tab PO 05/11/25 20:59 10 mg QPM REJI Administration Citalopram Hydrobromide 10 mg 04/11/25 21:00 04/11/25 20:05 Citalopram 20 Mg Tab PO 05/11/25 20:59 10 mg PM REJI Administration Hydromorphone HCl 0.25 mg 04/09/25 03:40 04/09/25 08:29 Hydromorphone Inj 0.5 Mg/0.5 Ml Syr IV 04/23/25 03:39 0.25 mg Q3H PRN Administration Moderate Pain (Scale 4, 5, 6) Hydromorphone HCl 0.5 mg 04/09/25 03:40 04/09/25 20:44 Hydromorphone Inj 0.5 Mg/0.5 Ml Syr IV 04/23/25 03:39 0.5 mg Q3H PRN Administration Severe Pain (Scale 7, 8, 9,10) Piperacillin Sod/Tazobactam Sod 4.5 gm in 100 mls @ 25 mls/hr 04/11/25 17:00 04/12/25 05:12 Zosyn IV 04/21/25 16:59 Infused Q8H REJI Infusion Protocol Lactated Ringer's 1,000 mls @ 15 mls/hr 04/12/25 07:30 04/12/25 07:28 Lr IV 04/15/25 07:29 15 mls/hr .Q24H REJI Administration Ondansetron HCl 4 mg 04/09/25 05:26 04/10/25 19:01 Ondansetron Inj 2 Mg/Ml 2 Ml Vial IV 05/09/25 05:25 4 mg Q6H PRN Administration NAUSEA/VOMITING Pantoprazole Sodium 40 mg 04/11/25 13:30 04/11/25 14:41 Pantoprazole 40 Mg Tab PO 05/11/25 13:29 40 mg DAILY REJI Administration NPO Date Last Intake of Fluids: 04/11/25 Time Last Intake of Fluids: 18:00 Date Last Intake of Solids: 04/11/25 Time Last Intake of Solids: 18:00 Past Medical History Medical History Electronic cigarette use Pericardial effusion JUST HAS MORE FLUID AROUND HEART THAN MOST PEOPLE PER PATIENT> REASON FOR LISINOPRIL> DR. MANUEL FOLLOWS > DX 2 YRS AGO Exercise / Class Metabolic Activity II 4-5 Yardwork/Stairs/Walk up hill Past Family History Family History Mother Congestive heart failure Lung cancer Father Congestive heart failure Diabetes Denies family history of Ovarian cancer Prostate cancer Myocardial infarction Breast cancer Colorectal cancer Past Surgical History Surgical History Hx of bilateral cataract extraction H/O tooth extraction Past Anesthesia History No Hx of Anesthesia Complications and No Family Hx of Anesthesia Complications History of PONV No Hx of PONV and No Hx of Motion Sickness Social History Smoking Status: Current every day smoker tobacco type: e-cigarettes Smoking cigarettes per day: Njoy 1.5 pods a week Do You Dip or Chew Tobacco: No Hx Alcohol Use: Yes Alcohol type: beer alcohol intake frequency: a few times a week Alcohol Intake Frequency Comment: 1-2 few times a week Hx Substance Use: No substance use type: does not use Review of Systems ROS Unobtainable: All systems reviewed & are unremarkable except as noted in HPI & below Physical Exam Vital Signs Last Vital Signs Temp 36.6 C 04/11/25 20:45 Pulse 60 04/11/25 20:45 Resp 18 04/11/25 20:45 BP 163/83 H 04/11/25 20:45 Pulse Ox 96 04/11/25 20:45 O2 Del Method Room Air 04/11/25 20:45 ENMT Mouth: no TMJ abnormality Thyromental Distance: > or= 3.5 Finger Breadths Mallampati Class: II Neck normal visual inspection and trachea midline; neck extension not limited Respiratory normal respiratory effort Auscultation: lungs clear to auscultation bilaterally Cardiovascular Rate/Rhythm: regular rate and regular rhythm Heart Sounds: no murmur Musculoskeletal Spine: normal cervical ROM Extremities: full ROM of extremities Neurologic moves all extremities Psychiatric Orientation: alert and oriented x 3 Testing Laboratory Results 04/11/25 07:42 04/11/25 07:42 PT 11.4 Seconds (9.0-12.0) 04/11/25 07:42 INR 1.1 (0.9-1.1) 04/11/25 07:42 APTT 26 Seconds (21-31) 04/11/25 07:42 Urine Color Yellow 04/08/25 21:55 Urine Appearance Clear (Clear) 04/08/25 21:55 Urine pH 5.5 (4.5-7.5) 04/08/25 21:55 Ur Specific [place] 1.017 (1.000-1.030) 04/08/25 21:55 Urine Protein Negative (Negative) 04/08/25 21:55 Urine Glucose (UA) Negative (Negative) 04/08/25 21:55 Urine Ketones Negative (Negative) 04/08/25 21:55 Urine Nitrite Negative (Negative) 04/08/25 21:55 Ur Leukocyte Esterase Negative (Negative) 04/08/25 21:55 Urine WBC (Auto) 0-5 /hpf (0-5) 04/08/25 21:55 Urine RBC (Auto) 0-2 /hpf (0-2) 04/08/25 21:55 U Hyaline Cast (Auto) 0-2 /lpf (0-2) 04/08/25 21:55 U Epithel Cells (Auto) 3-5 /hpf (0-2) H 04/08/25 21:55 Urine Bacteria (Auto) None Seen (None Seen) 04/08/25 21:55 Electrocardiogram Date: 04/08/25 Findings: + NSR @ Stress Test Date: 05/16/23 Type: DSE Findings: + WNL Resting LV Function: normal
[2025-04-12] MEDS ORDERED: ATROPINE SULFATE 0.1 MG/ML 10ML SYR IV PRN (07:39)
[2025-04-12] MEDS ORDERED: ONDANSETRON INJ 2 MG/ML 2 ML VIAL IV PRN (07:39)
[2025-04-12] MEDS ORDERED: ACETAMINOPHEN 1000 MG/100 ML IV IV ONE (07:40)
[2025-04-12 08:13] LABS: INR 1.1 (0.9-1.1); Partial Thromboplastin Time 26 Seconds (21-31); Prothrombin Time 11.3 Seconds (9.0-12.0)
[2025-04-12] MEDS ORDERED: ESMOLOL HCL INJ 10 MG/ML 10ML VIAL IV ONE (08:23)
[2025-04-12] MEDS: LIDOCAINE 1% LOCAL 20 ML VIAL ONE (08:24)
[2025-04-12] MEDS ORDERED: LABETALOL HCL IV 5 MG/ML 20ML IV ONE (08:31)
[2025-04-12] MEDS ORDERED: SUGAMMADEX SODIUM 200 MG/2 ML VIAL IV ONE (08:42)
[2025-04-12] MEDS ORDERED: KETOROLAC 30 MG/ML VIAL ONE (08:44)
[2025-04-12] MEDS: BUPIVACAINE/EPINEPHRINE 0.5% MPF 1:200,000 30 ML VIAL ONE (08:45)
--- NOTE | 2025-04-12 08:46 | Operative Report ---
[facility] Post Operative Report Pre & Post Diagnosis Operation Date: 04/12/25 07:00 Pre-Op Diagnosis: Dilated Appendix Post-Op Diagnosis: Dilated Appendix, acute appendicitis I identified the patient and participated in the time-out.: Yes Procedure Operation Date: 04/12/25 07:00 Actual Procedures p Laparoscopic Appendectomy - Adi Dobbins MD Surgeon Adi Dobbins MD Supply And Distribution Manager Samantha Nye PA-C Estimated Blood Loss 5 Findings Consistent with Post-Op Diagnosis Dilated and irritated appendix, consistent with appendicitis Specimens Appendix Indications This is a 59-year-old female with a history of abdominal pain. Workup revealed possible acute appendicitis however cecal mass could not be ruled out. She did undergo a colonoscopy that did not reveal evidence of a mass. The music orchestrator did report mucus draining from the appendiceal orifice. She presents now for laparoscopic appendectomy, possible open appendectomy and all other indicated procedures. Risks of the procedure were discussed with the patient and they include bleeding, infection, injury to surrounding structures, need for further procedures, retained appendix, appendiceal stump leak, wound issues to include wound infection, dehiscence, and hernia, and cardiopulmonary events that can occur. Alternatives include no surgery, which patient declines. Patient wishes to proceed with surgery. All questions were answered. Description of Procedure Informed consent was verified and site of surgery was verified and the patient was brought back to the operating room. General anesthesia was administered. She was in the supine position. Her abdomen was prepped and draped in the usual sterile fashion. A surgical timeout was performed and there were no issues. Next, a left upper quadrant incision was made and a Veress needle was inserted and the abdomen was insufflated to about 15 mmHg. Next, a 30 degree laparoscope was inserted with a 5 mm trocar using the Optiview technique. The abdomen was inspected. There was no evidence of any injuries to any structures from entry into the abdominal cavity. Next, under direct vision, 2 additional ports were placed, one was a left lower quadrant port and this was a 12 mm port and one was a 5 mm port placed suprapubically. The appendix was identified. It was seen to be inflamed and dilated. It was gently grasped and the mesoappendix was divided using the LigaSure device. The base of the appendix was transected using the Endo ZOFIA stapler, white leonardo with care taken to avoid narrowing of the ileocecal valve and care taken to ensure that the entire appendix was removed at its base going into the cecum. Next, the appendix was placed in Endo Catch bag and removed under direct vision. Next, the abdomen was inspected, there was some murky fluid in the pelvis that was suctioned. The staple line of the appendix was examined, there was no evidence of any bleeding or bile drainage. The fascia of the left lower quadrant port was closed under direct vision with a 0 Vicryl suture and a fascial closure device. The skin was closed using 4 Monocryl. Local anesthesia was also infiltrated. Sterile dressing was applied and the patient was weaned off anesthesia and transferred to recovery in stable condition. She tolerated the procedure well. Physician nursing assistant, Samantha Flores, was essential for all aspects of the case, including into the abdomen, exposure, dissection, transection of appendix, and closure of abdomen and transport of patient. I attest to the content of the Intraoperative Record and any orders documented therein. Any exceptions are noted below.
[2025-04-12] MEDS: SODIUM CHLORIDE 0.9% 1,000 ML IV SCH (09:45)
--- NOTE | 2025-04-12 11:41 | Anesthesiology Progress Note ---
Date of Service April 12, 2025 Anesthesia Post Procedure Vital Signs Vital Signs: Temp Pulse Pulse Resp BP Pulse Ox O2 Del Method 04/12/25 09:30 58 L 14 178/82 H 94 Nasal Cannula 04/12/25 09:20 36.5 C 54 L 14 174/79 H 94 Nasal Cannula 04/12/25 09:10 56 L 16 182/89 H 96 Oxymask 04/12/25 09:00 58 L 16 177/83 H 96 Oxymask 04/12/25 08:56 36.1 C L 54 L 16 175/88 H 95 Oxymask 04/11/25 20:45 36.6 C 60 18 163/83 H 96 Room Air 04/11/25 20:10 Room Air 04/11/25 16:14 36.5 C 63 18 156/78 H 96 Room Air 04/11/25 11:47 56 L 18 156/85 H 97 Room Air O2 Flow Rate 04/12/25 09:30 3 04/12/25 09:20 3 04/12/25 09:10 3 04/12/25 09:00 6 04/12/25 08:56 6 04/11/25 20:45 04/11/25 20:10 04/11/25 16:14 04/11/25 11:47 Pain Intensity Abdomen: Pain Intensity: 6 Transfer of Care Handoff Completed per policy Notes Mental Status: alert / awake / arousable Patient Amnestic to Procedure: Yes Nausea / Vomiting: adequately controlled Pain: adequately controlled Airway Patency, RR, SpO2: stable & adequate BP & HR: stable & adequate Hydration State: stable & adequate Anesthetic Complications: no major complications apparent and Pt Satisfied with anesthetic care
[2025-04-12 13:39] VITALS: BP 156/73; PULSE 62; RESP 16; TEMP 97.7; O2SAT 95
--- NOTE | 2025-04-12 16:16 | Discharge Summary ---
Discharge Summary Date of Service April 12, 2025 Principal Dx & Hospital Course #1 = Principal Diagnosis (1) Mass of cecum: (2) Appendix disease: (3) Hypertension: (4) Anxiety: (5) Appendicitis: Plan Denise Rubin is a 59 year old female admitted to [facility] from April 09 - April 12, [address] due to [address] CT was initially concerning for a cecal mass but this was ruled out on colonoscopy. She was treated with intravenous Zosyn during her hospitalization but no further antibiotics required on discharge. She underwent appendectomy performed by Dr Dobbins on April 12, 2025 which confirmed diagnosis of appendicitis. Surgical pathology of this is pending on discharge and she will follow up with surgery for the results of this. Please see additional surgical instructions below. Notes For Next Care Provider No PCP follow up required Follow up with general surgery for routine post operative care Medication Changes From Visit Oxycodone as needed for pain Admission HPI Per Admitting Provider The patient is a 59-year-old female with past medical history significant for atherogenic dyslipidemia, abdominal bruit, CRYSTAL, RLS, GERD, anxiety, hypertension, and depression. She presents to the emergency department with complaint of severe left sided and left lower quadrant abdominal pain began around 2:00 in the afternoon, accompanied by nausea without vomiting. In the past she when she has had abdominal pain she has taken Protonix and has had relief, however, she did not have significant improvement with twice this time, and thus presented to the ED for assessment. Workup in the emergency department included a CT of abdomen and pelvis which showed a 5.2 cm cecum mass, a distended fluid-filled appendix, which was concerning for malignancy. From the ED she received the following: Normal saline 1 L bolus, morphine 4 mg IV, Zofran 4 mg IV, acetaminophen 1 g IV, famotidine 20 mg IV, Protonix 40 mg IV, and morphine 4 mg IV. She was then referred for evaluation for admission to [facility]. Discharge Exam Gastrointestinal (Abdomen) Inspection/Auscultation: abdomen normal to inspection (surgical scars clean, dry intact, mild bruising) Discharge Plan Discharge Items Patient Disposition: Home - Self-Care Reason For Visit: CECUM MASS, DILATED APPENDIX Discharge Diagnosis: laparoscopic appendectomy Appendicitis Condition on Discharge: Fair Activity: Per Instructions section Lifting: No more than 10 pounds Bathing Comment: may shower 04/13/25; no soaking in tubs/pools x 2 weeks Exercise/Sports: Wait until after follow-up appointment Driving/Machine Use: no driving while on narcotics for pain Non-emergency contact: Primary Care Provider and Surgeon Call non-emergency contact if: you have any medication questions, your symptoms worsen, your pain is worsening, you have a fever, your temperature is above 101.5, your wound has increased redness, your wound has increased drainage and your wound pain has increased Follow-up/Referrals: Chacorta Mcfadden DO [Primary Care Provider] - Adi Dobbins MD [Surgeon] - (please call to schedule follow up in the office in 2 weeks) Diet: Regular Addtl Attending Provider Instructions: SPECIAL CARE INSTRUCTIONS: * You have skin glue over your incisions called dermabond. you may shower with this on. It will tend to dissolve and fall off within a couple weeks. Do not pick at the skin glue * You may shower 04/13 . NO soaking in pools or baths for 2 weeks * No lifting greater than 10lbs. No strenuous exercise until cleared by surgeon. Light walking is accepted. * No driving while taking narcotic pain medication; wait at least 3 days * No drinking alcohol while taking narcotic pain medication * May use Ibuprofen/Tylenol over the counter for pain as tolerated. Do not exceed 3grams of Tylenol per 24 hours * Expect some swelling and bruising. * Diet- you may resume your regular diet Call your doctor if: * Temperature above 101 degrees, nausea/vomiting, fever/chills * Pain not relieved by pain medicine ordered * There is increased drainage or redness from any incision * You have any unanswered questions or concerns [phone]. FOLLOW UP VISIT: If not already scheduled, please call the office for a follow-up visit. 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 CT was initially concerning for a cecal mass but this was ruled out on colonoscopy. You underwent appendectomy performed by Dr Dobbins on April 12, 2025 which confirmed diagnosis of appendicitis. Surgical pathology of this is pending on discharge and you will follow up with surgery for the results of this. Pending Studies at Discharge: Yes Studies:: surgical pathology Stand-Alone Forms: [facility], Work/School Release, Smoking Cessation Medications and DC Order Prescriptions: New oxycodone 5 mg tablet 5 mg PO Q6H PRN (Reason: pain) Qty: 10 0RF Continued atorvastatin 10 mg tablet 10 mg PO QPM Qty: 90 3RF aspirin 81 mg tablet,delayed release (DR/EC) 81 mg PO DAILY Qty: 90 3RF citalopram 10 mg tablet 10 mg PO PM Qty: 90 3RF lisinopril 30 mg tablet 30 mg PO QAM Qty: 90 3RF pantoprazole [Protonix] 40 mg tablet,delayed release (DR/EC) 40 mg PO DAILY Qty: 30 2RF Discharge Orders: Discharge Order (Routine); Ordered 04/12/25 Ordered By: Chaka Fletcher/Other Patient Handouts: Oxycodone Oral Tablet Admission Data Admit Date/Time: 04/09/25 03:43 Attending Provider: Chaka Allred Admit Provider: Ramon Giang Primary Care Provider: Chacorta Mcfadden Other Providers: Ramon Giang; Josh Andrew; Elton Myers Jr Hospital Stay Data Consultations 04/09/25 03:35 ED Decision to Admit Stat 04/09/25 05:26 Consult General Surgery Routine 04/09/25 07:48 Consult Gastroenterology Routine Procedures Performed Operation Date: 04/12/25 07:00 Actual Procedures p Laparoscopic Appendectomy - Adi Dobbins MD Diagnostic Imagining Performed 04/08/25 22:33 CT abd pelvis IV con only Stat IMPRESSION: 1. There is a 5.2 cm mass of the cecum with a distended fluid-filled appendix measuring 1.2 cm. This is highly concerning for malignancy. 2. Trace free fluid in the abdomen and pelvis is nonspecific. 3. Trace bilateral pleural effusions. Pending Results Patient Have Any Pending Studies at Discharge: Yes Discharge Instructions Given to Patient (Per Discharging Provider) SPECIAL CARE INSTRUCTIONS: * You have skin glue over your incisions called dermabond. you may shower with this on. It will tend to dissolve and fall off within a couple weeks. Do not pick at the skin glue * You may shower 04/13 . NO soaking in pools or baths for 2 weeks * No lifting greater than 10lbs. No strenuous exercise until cleared by surgeon. Light walking is accepted. * No driving while taking narcotic pain medication; wait at least 3 days * No drinking alcohol while taking narcotic pain medication * May use Ibuprofen/Tylenol over the counter for pain as tolerated. Do not exceed 3grams of Tylenol per 24 hours * Expect some swelling and bruising. * Diet- you may resume your regular diet Call your doctor if: * Temperature above 101 degrees, nausea/vomiting, fever/chills * Pain not relieved by pain medicine ordered * There is increased drainage or redness from any incision * You have any unanswered questions or concerns [phone]. FOLLOW UP VISIT: If not already scheduled, please call the office for a follow-up visit. Office Total Time Total Time Spent Total Time Spent (In Minutes): 40 Coding Level of Care Code 96024 INP/OBS DISCH >30 MIN Diagnoses Mass of cecum K63.89 Appendix disease K38.9 Primary hypertension I10 Hypertension type: primary hypertension Anxiety F41.9 Appendicitis K37
[2025-04-12] MEDS: ACETAMINOPHEN 500 MG TAB PO PRN (17:25)
[2025-04-12] MEDS: INFLUENZA VACC TS2025-26(6m+)/PF (IIV3) 0.5mL Syr IM ONE (17:59)
[2025-04-12] MEDS: PNEUMOCOCCAL VACCINE (PCV20) 20-VAL CONJ-DIP CRM/PF 0.5 ML SYR IM ONE (18:01)
== END 2025-04-12 18:14 | disposition home or self-care (01) | DRG 399 ==
LOC: SUATTDRO → ED 21:45 → 3N 04-09 03:43 → SUATTDRO 04-09 03:43 → INTOOBSV 04-09 03:43 → 3N 04-09 05:10 → 3W 04-12 05:18